=== PATIENT | male | born 1950 | race Hispanic/Latino ===

== ENCOUNTER 2018-10-21 11:07 | Inpatient (IN) | payer BC ==
[2018-10-21] MEDS ORDERED: Nitroglycerin 0.4 MG TAB (25 Tab Bottle) SL PRN (20:00)
[2018-10-21] MEDS ORDERED: HumaLOG 300 UNITS/3 ML VIAL SC PRN (20:01)
[2018-10-21] MEDS ORDERED: Dextrose 50% Abboject 50 ML SYRINGE SLOW IVP PRN (20:01)
[2018-10-21] MEDS ORDERED: Dextrose 5% in Water 1,000 ML IV PRN (20:01)
[2018-10-21] MEDS ORDERED: Acetaminophen 650 MG Suppository PR PRN (20:02)
[2018-10-21] MEDS ORDERED: Ondansetron ODT 4 MG TAB PO PRN (20:02)
[2018-10-21] MEDS ORDERED: Ondansetron PF 4 MG/2 ML Vial IVP PRN (20:02)
[2018-10-21] MEDS ORDERED: Acetaminophen 325 MG TAB PO PRN (20:02)
[2018-10-21] MEDS: Atorvastatin Calcium 10 MG TAB PO SCH (20:33)
[2018-10-21 22:07] LABS: #Eosinphils 0.3 thou/uL (0.0-0.7); #Lymphocytes 2.9 thou/uL (1.20-3.40); #Monocytes 0.8 thou/uL (0.11-0.59); #Neutrophils 5.3 thou/uL (1.40-6.50); %Basophils 0.5 % (0.0-1.0); %Eosinophils 2.8 % (0.0-10.0); %Lymphocytes 30.9 % (21.0-51.0); %Monocytes 8.6 % (0.0-10.0); %Neutrophils 57.2 % (42.0-75.0); Hemoglobin 13.4 g/dL (14.0-18.0); Mean Corpuscular HGB CONC 34.2 g/dL (32.0-36.0); Mean Corpuscular Hemoglobin 30.9 pg (27.0-31.0); Mean Corpuscular Volume 90.3 fL (78.0-98.0); Mean Platelet Volume 7.8 fL (7.4-10.4); Platelet Count 171 thou/uL (130-400); RBC Distribution Width 12.1 % (11.5-14.5); Red Blood Cell (RBC) Count 4.33 mill/uL (4.70-6.10); White Blood Cell (WBC) Count 9.2 thou/uL (4.8-10.8)
[2018-10-21 22:28] LABS: ALT (SGPT) 11 U/L (8-55); AST (SGOT) 16 U/L (5-34); Albumin 3.5 g/dL (3.4-4.8); Alkaline Phosphatase 123 U/L (40-150); Anion Gap 13 mmol/L (10-20); BUN (Urea Nitrogen) 19 mg/dL (8.4-25.7); Bilirubin, Total 0.4 mg/dL (0.2-1.2); Calc. Creatinine Clearance 73 mL/min (70-130); Calcium 8.8 mg/dL (7.8-10.44); Carbon Dioxide 22 mmol/L (23-31); Chloride 105 mmol/L (98-107); Estimated GFR-MDRD 88; Globulin 3.2 g/dL (2.4-3.5); Glucose 213 mg/dL (80-115); Potassium 3.9 mmol/L (3.5-5.1); Protein, Total 6.7 g/dL (5.8-8.1); Sodium 136 mmol/L (136-145)
[2018-10-22 04:45] LABS: #Basophils 0.1 thou/uL (0.0-0.2); #Eosinphils 0.3 thou/uL (0.0-0.7); #Lymphocytes 2.6 thou/uL (1.20-3.40); #Monocytes 0.8 thou/uL (0.11-0.59); #Neutrophils 5.9 thou/uL (1.40-6.50); %Basophils 0.8 % (0.0-1.0); %Eosinophils 3.1 % (0.0-10.0); %Lymphocytes 27.1 % (21.0-51.0); %Monocytes 8.6 % (0.0-10.0); %Neutrophils 60.4 % (42.0-75.0); Hemoglobin 13.8 g/dL (14.0-18.0); Mean Corpuscular HGB CONC 33.8 g/dL (32.0-36.0); Mean Corpuscular Hemoglobin 30.5 pg (27.0-31.0); Mean Corpuscular Volume 90.2 fL (78.0-98.0); Mean Platelet Volume 8.1 fL (7.4-10.4); Platelet Count 181 thou/uL (130-400); RBC Distribution Width 12.2 % (11.5-14.5); Red Blood Cell (RBC) Count 4.53 mill/uL (4.70-6.10); White Blood Cell (WBC) Count 9.7 thou/uL (4.8-10.8)
[2018-10-22 05:04] LABS: Anion Gap 14 mmol/L (10-20); BUN (Urea Nitrogen) 16 mg/dL (8.4-25.7); Calc. Creatinine Clearance 79 mL/min (70-130); Calcium 9.1 mg/dL (7.8-10.44); Carbon Dioxide 21 mmol/L (23-31); Chloride 103 mmol/L (98-107); Estimated GFR-MDRD Greater than 90; Glucose 179 mg/dL (80-115); Sodium 134 mmol/L (136-145)
[2018-10-22] MEDS ORDERED: Loperamide HCl 2 MG CAP PO PRN (07:34)
[2018-10-22] MEDS ORDERED: Zolpidem Tartrate 5 MG TAB PO PRN (07:34)
[2018-10-22] MEDS ORDERED: Bisacodyl 5 MG TAB PO PRN (07:34)
[2018-10-22] MEDS ORDERED: Sodium Chloride 0.65% Nasal 44 ML BOT EA NARE PRN (07:34)
[2018-10-22] MEDS ORDERED: Cepastat Lozenges 1 LOZ PO PRN (07:34)
[2018-10-22] MEDS ORDERED: Senokot S 8.6-50 MG TAB PO PRN (07:34)
[2018-10-22] MEDS ORDERED: Diabetic Tussin 200 MG/10 ML UDCUP PO PRN (07:34)
[2018-10-22] MEDS ORDERED: Loratadine 10 MG TAB PO PRN (07:34)
[2018-10-22] MEDS ORDERED: hydrALAZINE 20 MG/ML VIAL SLOW IVP PRN (07:34)
[2018-10-22] MEDS ORDERED: Nitroglycerin 0.4 MG TAB (25 Tab Bottle) SL PRN (07:36)
[2018-10-22] MEDS: Carvedilol 6.25 MG TAB PO SCH ×2 (08:37→17:40)
[2018-10-22] MEDS ORDERED: Prevnar 13-Val Conj/PF 0.5 ML SYRINGE IM ONE (09:00)
[2018-10-22] MEDS ORDERED: Enoxaparin Sodium 40 MG/0.4 ML SYRINGE SC SCH (09:00)
[2018-10-22] MEDS ORDERED: Aspirin 325 mg Enteric Coated Tablet PO SCH (09:00)
[2018-10-22] MEDS: Communication Order-Pharmacy FS SCH (10:45)
--- NOTE | 2018-10-22 11:33 | HP ---
PRIMARY CARE DOCTOR: None reported. CODE STATUS: Full code. TIME OF EVALUATION: 07:55 p.m. CHIEF COMPLAINT: Chest pain. HISTORY OF PRESENT ILLNESS: This is a 68-year-old male patient, past medical history of coronary artery disease with previous stents a few years ago. The patient came to the hospital after having chest pain that started on Friday around 1:00 a.m. The pain was very severe, is 9/10, with no clear triggers, no alleviating factors. The pain gets better by itself, although today it was very severe, got better only after injection of morphine. REVIEW OF SYSTEMS: CONSTITUTIONAL: No fever, chills, or generalized weakness. RESPIRATORY: No cough, sputum production, or shortness of breath. CARDIOVASCULAR: The patient has chest pain. No palpitation. GASTROINTESTINAL: No nausea. No vomiting, diarrhea, or abdominal pain. [employer]: No dizziness, headache, or feeling lightheaded. GENITOURINARY: No burning on urination. EXTREMITIES: No leg swelling. All other systems were reviewed and negative except for the findings mentioned above. PAST MEDICAL HISTORY: Positive for coronary artery disease, diabetes, hypertension. PAST SURGICAL HISTORY: Previous stents x2. SOCIAL HISTORY: No alcohol. No drugs. No tobacco abuse. FAMILY HISTORY: Reviewed and noncontributory for current presentation. MEDICATIONS: Reported medications have been reconciled, although no specific drug dosage was reported. KNOWN ALLERGIES: Hydrocodone and penicillin. PHYSICAL EXAMINATION: VITAL SIGNS: Temperature 96.1, heart rate 77, respiratory rate was 16, oxygen saturation was 97% on room air, blood pressure 145/77. GENERAL APPEARANCE: The patient is alert, oriented, not in acute distress. HEENT: Eyes, normal conjunctivae. Moist oral mucosa. Anicteric. No JVD. RESPIRATORY: Bilateral air entry. No rales. No wheezing. Symmetric expansion. CARDIOVASCULAR: Normal rate, regular rhythm. No murmurs. No gallop. No edema. ABDOMEN: Soft. Normal bowel sounds. MUSCULOSKELETAL: Baseline range of motion and strength. SKIN: Warm, intact. No pallor. No rash. No redness. Peripheral pulses are present. Capillary refill seems to be intact. NEURO: No evidence of any new focal weakness. Cranial nerves seem to be intact. PSYCH: The patient is in good mood. No anxiety. Optimal judgment. LABORATORY DATA: EKG and labs are pending. Telemonitoring within normal limits as reviewed by myself. ASSESSMENT AND PLAN: The patient will be placed in the hospital with following medical problems. 1. Coronary artery disease. The patient has acute angina, was unstable, was seen in the Med, admitted to the Med and then sent here to have the patient go for coronary artery bypass graft. Dr. Roy seems to be involved in the arrangement. We will follow recommendations. Though as of now seems to be stable, continue to monitor on tele. We have to reconcile home medications. 2. Diabetes. We will place the patient on sliding scale. 3. Hypertension. This seems to be controlled. Reconcile home medications. Adjust treatment as needed. 4. Hyperlipidemia. Low-cholesterol diet is advised, better control of diabetes is advised, reconcile home medications. Continue statins. 5. Deep venous thrombosis prophylaxis. Job ID: [id number]
--- NOTE | 2018-10-22 11:56 | PDOC.PN ---
- Subjective Encounter Start Date: 10/22/18 Encounter Start Time: 09:15 Patient seen and examined. No new complaints. No overnight events - Objective Resuscitation Status - Order Detail: 10/21/18 20:02 Resuscitation Status Routine Resuscitation Status: FULL: Full Resuscitation MAR Reviewed: Yes Vital Signs & Weight: Vital Signs (12 hours) Temp Pulse Resp BP Pulse Ox 10/22/18 08:31 97.9 F 71 13 127/75 96 10/22/18 04:00 97.8 F 78 15 135/79 98 Weight Weight 139 lb I&O: 10/21/18 10/22/18 10/23/18 06:59 06:59 06:59 Intake Total 720 Balance 720 Result Diagrams: 10/22/18 03:55 10/22/18 03:55 Additional Labs: Accuchecks 10/22/18 10/22/18 10/21/18 10:38 05:36 20:28 POC Glucose 288 H 173 H 128 H EKG Reviewed by me: Yes Phys Exam - Physical Examination Constitutional: NAD HEENT: PERRLA, moist MMs, sclera anicteric Neck: no JVD, supple Respiratory: no wheezing, no rales, no rhonchi Cardiovascular: RRR, no significant murmur, no rub Gastrointestinal: soft, non-tender, no distention, positive bowel sounds Musculoskeletal: no edema, pulses present Neurological: non-focal, normal sensation, moves all 4 limbs Lymphatic: no nodes Psychiatric: normal affect, A&O x 3 Skin: no rash, normal turgor Dx/Plan (1) CAD (coronary artery disease) Code(s): I25.10 - ATHSCL HEART DISEASE OF [place] CORONARY ARTERY W/O ANG PCTRS Status: Chronic (2) Diabetes type 2, controlled Code(s): E11.9 - TYPE 2 DIABETES MELLITUS WITHOUT COMPLICATIONS Status: Chronic (3) Dyslipidemia Code(s): E78.5 - HYPERLIPIDEMIA, UNSPECIFIED Status: Chronic (4) Hypertension Code(s): I10 - ESSENTIAL (PRIMARY) HYPERTENSION Status: Chronic - Plan cont current plan of care * medication reviewed as below * symptomatic treatment * home medication reviewed * tomorrow plan for CABG. Review of Systems - Review of Systems ENT: negative: Ear Pain, Ear Discharge, Nose Pain, Nose Discharge, Nose Congestion, Mouth Pain, Mouth Swelling, Throat Pain, Throat Swelling, Other Respiratory: negative: Cough, Dry, Shortness of Breath, Hemoptysis, SOB with Excertion, Pleuritic Pain, Sputum, Wheezing Cardiovascular: negative: chest pain, palpitations, orthopnea, paroxysmal nocturnal dyspnea, edema, light headedness, other Gastrointestinal: negative: Nausea, Vomiting, Abdominal Pain, Diarrhea, Constipation, Melena, Hematochezia, Other Genitourinary: negative: Dysuria, Frequency, Incontinence, Hematuria, Retention , Other Musculoskeletal: negative: Neck Pain, Shoulder Pain, Arm Pain, Back Pain, Hand Pain, Leg Pain, Foot Pain, Other - Medications/Allergies Allergies/Adverse Reactions: Allergies Allergy/AdvReac Type Severity Reaction Status Date / Time hydrocodone Allergy Hives Verified 10/21/18 19:14 Penicillins Allergy Verified 10/21/18 19:14 Medications: Current Medications Acetaminophen (Tylenol) 650 mg PO Q4H PRN PRN Reason: Headache/Fever/Mild Pain (1-3) Stop: 10/23/18 08:55 Last Admin: 10/22/18 05:35 Dose: 650 mg Acetaminophen (Tylenol) 650 mg TN Q4H PRN PRN Reason: Headache/Fever/Mild Pain (1-3) Stop: 10/23/18 08:55 Atorvastatin Calcium (Lipitor) 10 mg PO [facility] Stop: 10/23/18 08:55 Last Admin: 10/21/18 20:33 Dose: 10 mg Bisacodyl (Dulcolax) 10 mg PO DAILYPRN PRN PRN Reason: Constipation Stop: 10/23/18 08:55 Carvedilol (Coreg) 6.25 mg PO BID-[facility] Last Admin: 10/22/18 08:37 Dose: 6.25 mg Dextrose/Water (Dextrose 50%) 25 gm SLOW IVP PRN PRN PRN Reason: Hypoglycemia Stop: 10/23/18 08:55 Glucagon (Glucagon) 1 mg IM PRN PRN PRN Reason: Hypoglycemia Stop: 10/23/18 08:55 Guaifenesin (Robitussin Sf) 200 mg PO Q4H PRN PRN Reason: Cough Stop: 10/23/18 08:55 Hydralazine HCl (Apresoline) 10 mg SLOW IVP Q4H PRN PRN Reason: SBP > 180 and HR < 70 Stop: 10/23/18 08:55 Dextrose/Water (D5w) 1,000 mls @ 0 mls/hr IV .Q0M PRN PRN Reason: Hypoglycemia Stop: 10/23/18 08:55 Insulin Human Lispro (Humalog) 0 units SC .MILD SLIDING SCALE PRN PRN Reason: Mild Correctional Scale Stop: 10/23/18 08:55 Loperamide HCl (Imodium) 2 mg PO PRN PRN PRN Reason: Diarrhea/Loose Stools Stop: 10/23/18 08:55 Loratadine (Claritin) 10 mg PO DAILYPRN PRN PRN Reason: Sinus Symptoms Stop: 10/23/18 08:55 Miscellaneous Information (Communication Order-Pharmacy) 1 each FS NOW AMANDA Stop: 10/23/18 08:55 Last Admin: 10/22/18 10:45 Dose: 1 each Nitroglycerin (Nitrostat) 0.4 mg SL Q5MIN PRN PRN Reason: Chest Pain Stop: 10/23/18 08:55 Nitroglycerin (Nitrostat) 0.4 mg SL Q5MIN PRN PRN Reason: Chest Pain Stop: 10/23/18 08:55 Ondansetron HCl (Zofran Odt) 4 mg PO Q6H PRN PRN Reason: Nausea/Vomiting Stop: 10/23/18 08:55 Ondansetron HCl (Zofran) 4 mg IVP Q6H PRN PRN Reason: Nausea/Vomiting Stop: 10/23/18 08:55 Senna/Docusate Sodium (Senokot S) 2 tab PO BID PRN PRN Reason: Constipation Stop: 10/23/18 08:55 Sodium Chloride ([place] Nasal [place] 0.65%) 0 ml EA NARE QIDPRN PRN PRN Reason: Nasal Congestion Stop: 10/23/18 08:55 Throat Lozenges (Cepastat Lozenges) 1 can PO Q2H PRN PRN Reason: Sore Throat Stop: 10/23/18 08:55 Zolpidem Tartrate (Ambien) 5 mg PO HSPRN PRN PRN Reason: Insomnia Stop: 10/23/18 08:55
--- NOTE | 2018-10-22 20:04 | EKG ---
Test Reason : Blood Pressure : / mmHG Vent. Rate : 079 BPM Atrial Rate : 079 BPM P-R Int : 140 ms QRS Dur : 084 ms QT Int : 366 ms P-R-T Axes : 073 017 050 degrees QTc Int : 419 ms Normal sinus rhythm Normal ECG When compared with ECG of 16-SEP-2014 18:38, No significant change was found Confirmed by DANIELA QUINTERO, DR. Reyes ([id number]) on 10/22/2018 8:03:36 PM Referred By: Confirmed By:DR. Eric SUAREZ MD
[2018-10-22] MEDS: Atorvastatin Calcium 10 MG TAB PO SCH (20:10)
[2018-10-22] MEDS ORDERED: CEFAZOLIN 2 GM in Premix Bag 1 BAG IVPB SCH (21:15)
[2018-10-23] MEDS: Carvedilol 6.25 MG TAB PO SCH (05:35)
[2018-10-23] MEDS: Communication Order-Pharmacy FS SCH (05:35)
[2018-10-23] MEDS ORDERED: Levofloxacin 500 mg/D5W 100 ml Premix Bag ONE (06:18)
[2018-10-23] MEDS ORDERED: Clindamycin/D5W 900 mg/50 ml Premix Bag ONE (06:18)
[2018-10-23] MEDS ORDERED: Albumin 5% 500 ML ONE (06:37)
[2018-10-23] MEDS ORDERED: Heparin 10,000 UNITS/1 ML VIAL 30,000 UNITS in Sodium Chloride 0.9% 1,000 ML IVPB SCH (06:45)
[2018-10-23] MEDS ORDERED: Midazolam HCl 2 mg/2 ml Vial ONE (07:07)
[2018-10-23] MEDS ORDERED: Insulin Regular 300 UNITS/3 ML VIAL ONE (08:10)
--- NOTE | 2018-10-23 11:07 | PDOC.PN ---
- Subjective Encounter Start Date: 10/23/18 Encounter Start Time: 07:00 pt seen at 7 AM before surgery, Patient seen and examined. No new complaints. No overnight events - Objective Resuscitation Status - Order Detail: 10/21/18 20:02 Resuscitation Status Routine Resuscitation Status: FULL: Full Resuscitation MAR Reviewed: Yes Vital Signs & Weight: Vital Signs (12 hours) Temp Pulse Resp BP Pulse Ox 10/23/18 04:00 98.3 F 80 20 143/81 H 97 Weight Weight 138 lb 8 oz I&O: 10/22/18 10/23/18 10/24/18 06:59 06:59 06:59 Intake Total 720 360 Balance 720 360 Result Diagrams: 10/23/18 12:40 10/23/18 12:40 Additional Labs: Accuchecks 10/23/18 10/23/18 10/23/18 10:43 10:32 10:02 POC Glucose 154 H 127 H 112 H 10/23/18 10/23/18 10/22/18 09:49 05:16 20:24 POC Glucose 127 H 181 H 213 H 10/22/18 16:50 POC Glucose 158 H EKG Reviewed by me: Yes (nsr) Phys Exam - Physical Examination Constitutional: NAD HEENT: PERRLA, moist MMs, sclera anicteric Neck: no JVD, supple Respiratory: no wheezing, no rales, no rhonchi Cardiovascular: RRR, no significant murmur, no rub Gastrointestinal: soft, non-tender, no distention, positive bowel sounds Musculoskeletal: no edema, pulses present Neurological: non-focal, normal sensation, moves all 4 limbs Lymphatic: no nodes Psychiatric: normal affect, A&O x 3 Skin: no rash, normal turgor Dx/Plan (1) CAD (coronary artery disease) Code(s): I25.10 - ATHSCL HEART DISEASE OF [place] CORONARY ARTERY W/O ANG PCTRS Status: Chronic (2) Diabetes type 2, controlled Code(s): E11.9 - TYPE 2 DIABETES MELLITUS WITHOUT COMPLICATIONS Status: Chronic (3) Dyslipidemia Code(s): E78.5 - HYPERLIPIDEMIA, UNSPECIFIED Status: Chronic (4) Hypertension Code(s): I10 - ESSENTIAL (PRIMARY) HYPERTENSION Status: Chronic - Plan cont current plan of care, plan discussed w/ family * today CABG * after cabg, continue post cabg protocol treatment as per CV surgery * medication reviewed as below * symptomatic treatment * discussed with family bedside Review of Systems - Review of Systems ENT: negative: Ear Pain, Ear Discharge, Nose Pain, Nose Discharge, Nose Congestion, Mouth Pain, Mouth Swelling, Throat Pain, Throat Swelling, Other Respiratory: negative: Cough, Dry, Shortness of Breath, Hemoptysis, SOB with Excertion, Pleuritic Pain, Sputum, Wheezing Cardiovascular: negative: chest pain, palpitations, orthopnea, paroxysmal nocturnal dyspnea, edema, light headedness, other Gastrointestinal: negative: Nausea, Vomiting, Abdominal Pain, Diarrhea, Constipation, Melena, Hematochezia, Other Genitourinary: negative: Dysuria, Frequency, Incontinence, Hematuria, Retention , Other Musculoskeletal: negative: Neck Pain, Shoulder Pain, Arm Pain, Back Pain, Hand Pain, Leg Pain, Foot Pain, Other Skin: negative: Rash, Lesions, Markel, Bruising, Other - Medications/Allergies Allergies/Adverse Reactions: Allergies Allergy/AdvReac Type Severity Reaction Status Date / Time hydrocodone Allergy Hives Verified 10/21/18 19:14 Penicillins Allergy Verified 10/21/18 19:14 Medications: Current Medications Carvedilol (Coreg) 6.25 mg PO BID-[facility] Last Admin: 10/23/18 05:35 Dose: 6.25 mg Cefazolin Sodium/Dextrose 2 gm (/ Device) 50 mls @ 100 mls/hr IVPB ONCALL-OR AMANDA Stop: 10/23/18 21:16 Heparin Sodium (Porcine) 30, (000 units/ Sodium Chloride) 1,003 mls @ 0 mls/hr IVPB .Q0M AMANDA
[2018-10-23] MEDS ORDERED: Norepinephrine 8 MG/0.9% NS 250 ML IVPB PRN (12:13)
[2018-10-23] MEDS ORDERED: Bisacodyl 10 MG SUPP PR PRN (12:13)
[2018-10-23] MEDS ORDERED: Post-Op Insulin Drip Protocol IVPB SCH (12:13)
[2018-10-23] MEDS ORDERED: Fentanyl 100 MCG/2 ML VIAL SLOW IVP PRN ×2 (12:13)
[2018-10-23] MEDS ORDERED: Bisacodyl 5 MG TAB PO PRN (12:13)
[2018-10-23] MEDS ORDERED: Mag-Al 1200 mg/1200 mg/30 ML UDCUP PO PRN (12:13)
[2018-10-23] MEDS ORDERED: Guaifenesin DM 100-10/5 ML UDCUP PO PRN (12:13)
[2018-10-23] MEDS ORDERED: Acetaminophen 325 MG TAB PO PRN (12:13)
[2018-10-23] MEDS ORDERED: niCARdipine HCl 25 MG in Sodium Chloride 0.9% 250 ML 240 ML IVPB PRN (12:13)
[2018-10-23] MEDS ORDERED: Hetastarch 6% 500 ML 500 ML IVPB PRN (12:13)
[2018-10-23] MEDS ORDERED: Potassium Chloride 20 MEQ/100 ML PREMIX BAG IVPB PRN (12:13)
[2018-10-23] MEDS ORDERED: Nitroglycerin 50 MG/250 ML BOT 250 ML IVPB PRN (12:13)
[2018-10-23] MEDS ORDERED: Promethazine HCl 25 MG/ML VIAL IM PRN (12:13)
[2018-10-23] MEDS ORDERED: Ondansetron PF 4 MG/2 ML Vial IVP PRN (12:13)
[2018-10-23] MEDS ORDERED: DOPamine 400 MG/D5W 250 ML 250 ML IVPB PRN (12:13)
[2018-10-23] MEDS ORDERED: hydrALAZINE 20 MG/ML VIAL SLOW IVP PRN (12:13)
[2018-10-23] MEDS ORDERED: Magnesium 2 GM/50 ML 2 GM in Premix Bag 1 BAG IVPB SCH (12:15)
--- NOTE | 2018-10-23 12:50 | RAD ---
EXAM: CHEST ONE VIEW HISTORY: Post open heart surgery COMPARISON: 06/12 FINDINGS: There has been interval postsurgical changes related to CABG. An endotracheal tube is noted in place with the tip overlying the T4-5 level and above the level of the [place]. A right subclavian central venous catheter is noted in place which courses across the midline with tip overlying the region of t he left subclavian vessels. Mediastinal drains and left-sided thoracostomy tube are noted in place. No pneumothorax is seen. There is a linear density seen in the left midlung zone which may be related to an area of scarring o r atelectasis. Lungs are otherwise clear. Vascular calcifications are seen in the thoracic aorta. Mild degenerative changes are noted in the spine. IMPRESSION: 1. Postsurgical changes related to recent CABG with lines and tubes in place as described above. The left subclavian central venous catheter does cross the midline with tip overlying the region of the left subclavian vessels. 2. Linear and slight nodular density left midlung zone which may represent area of scarring or atelec tasis. However, follow-up evaluation is recommended.
[2018-10-23] MEDS: Morphine 2 MG/ML SYRINGE SLOW IVP PRN ×2 (12:56→21:25)
[2018-10-23] MEDS: Clindamycin/D5W 900 MG in Premix Bag 1 BAG IVPB SCH ×2 (12:56→18:22)
[2018-10-23 13:01] LABS: INR-International Normal Ratio 1.4; PTT 36.3 SEC (22.9-36.1); Prothrombin Time 17.1 SEC (12.0-14.7)
[2018-10-23 13:16] LABS: #Eosinphils 0.1 thou/uL (0.0-0.7); #Lymphocytes 1.4 thou/uL (1.20-3.40); #Monocytes 0.9 thou/uL (0.11-0.59); #Neutrophils 8.8 thou/uL (1.40-6.50); %Basophils 0.1 % (0.0-1.0); %Eosinophils 0.7 % (0.0-10.0); %Lymphocytes 12.7 % (21.0-51.0); %Monocytes 7.9 % (0.0-10.0); %Neutrophils 78.7 % (42.0-75.0); Hemoglobin 10.8 g/dL (14.0-18.0); Mean Corpuscular HGB CONC 34.1 g/dL (32.0-36.0); Mean Corpuscular Hemoglobin 30.9 pg (27.0-31.0); Mean Corpuscular Volume 90.7 fL (78.0-98.0); Mean Platelet Volume 8.8 fL (7.4-10.4); Platelet Count 110 thou/uL (130-400); Platelet Morphology Comment Appears Decreased; RBC Distribution Width 12.1 % (11.5-14.5); Red Blood Cell (RBC) Count 3.49 mill/uL (4.70-6.10); White Blood Cell (WBC) Count 11.2 thou/uL (4.8-10.8)
[2018-10-23 13:19] LABS: Anion Gap 11 mmol/L (10-20); BUN (Urea Nitrogen) 15 mg/dL (8.4-25.7); Calc. Creatinine Clearance 83 mL/min (70-130); Calcium 8.3 mg/dL (7.8-10.44); Carbon Dioxide 22 mmol/L (23-31); Chloride 111 mmol/L (98-107); Estimated GFR-MDRD Greater than 90; Glucose 102 mg/dL (80-115); Potassium 4.7 mmol/L (3.5-5.1); Sodium 139 mmol/L (136-145)
[2018-10-23] MEDS: Insulin Regular 100 UNITS in Sodium Chloride 0.9% 100 ML IVPB SCH (15:36)
[2018-10-23] MEDS ORDERED: HEXTEND 6% LR 500ML 500 ML IVPB PRN (16:04)
[2018-10-23 16:47] LABS: Actual Bicarbonate (HCO3a) 20.4 mEq/L (22-28); Base Excess (BEa) -2.8 mEq/L (-2.0 to +3.0); Calcium, Ionized 1.12 mmol/L (1.12-1.30); Carboxyhemoglobin (COHb) 0.2 gm% (0.0-3.0); Hemoglobin (Hb) 10.3 g/dL (14.0-18.0); O2 Tension (PaO2) 126.5 mmHg (> 80.0); pH, Arterial 7.45 (7.35-7.45)
[2018-10-23] MEDS: Ketorolac Tromethamine 30 MG/ML VIAL IVP SCH (17:18)
[2018-10-23] MEDS ORDERED: Norepinephrine 8 MG in Dextrose 5% in Water 242 ML IVPB PRN (17:24)
[2018-10-23] MEDS ORDERED: Sodium Chloride 0.9% 1,000 ML IV SCH (18:15)
[2018-10-23 18:39] LABS: Potassium 4.7 mmol/L (3.5-5.1)
[2018-10-23] MEDS: Famotidine/PF 20 mg/2ml Vial SLOW IVP SCH (21:26)
--- NOTE | 2018-10-23 22:35 | CON ---
DATE OF CONSULTATION: 10/23/2018 INDICATION FOR CONSULTATION: A 68-year-old gentleman with severe three-vessel coronary artery disease, underwent bypass surgery today. We were asked to see him in consultation to assist with any type of postoperative and perioperative arrhythmias or other cardiac problems. This very pleasant 68-year-old gentleman who is now intubated and sedated is on the ventilator, underwent bypass surgery earlier today by Dr. Roy. He had 4-vessel bypass with a SPARKS to the left anterior descending artery, saphenous vein graft to the diagonal branch and also the ramus and a radial graft to the obtuse marginal branch of the left circumflex. Apparently, the distal circumflex and the right coronary system were too small to undergo further intervention. He had undergone previously stent placement to a ramus branch and also to the right coronary artery many years ago. He presented recently to [facility] where he underwent repeat cardiac catheterization, was found to have some severe 3-vessel coronary artery disease. No further stents were placed. He was advised to undergo bypass surgery. At this time, he is stable in intensive care unit in sinus rhythm. Vital signs appear to be stable. He was transferred here for bypass surgery from [facility]. PAST MEDICAL HISTORY: Significant for hypertension, hypercholesterolemia, diabetes, coronary artery disease, and angioplasty and stent placement in the past. REVIEW OF SYSTEMS: Not obtainable. MEDICATIONS: Prior to admission included; 1. Coreg 12.5 mg b.i.d. 2. He was placed on Lovenox for subcu when he was in the [facility] prior to being transferred. 3. Guaifenesin. 4. Morphine. 5. Tylenol. 6. Aspirin 81 mg daily. 7. Atorvastatin 40 mg q.p.m. 8. He was on calcium carbonate for dyspepsia. 9. He was on famotidine 20 mg IV q.12 hours. 10. Insulin on sliding scale. 11. He was on magnesium for constipation. 12. Ondansetron for nausea. ALLERGIES: HE IS ALLERGIC TO PENICILLIN, HYDROCODONE. PHYSICAL EXAMINATION: GENERAL: Reveals a well-developed, well-nourished gentleman who is in no acute distress. VITAL SIGNS: Blood pressure is 103/65, heart rate is 84 and regular, on the ventilator, O2 saturation 98%. He is overbreathing on the ventilator about 26 breaths per minute. HEENT: Shows the head to be normocephalic and atraumatic. Carotid pulses are present without any bruits. CHEST: Clear to auscultation anteriorly. His chest tubes in place. CARDIOVASCULAR: Reveals a regular rate and rhythm. He has a midline incision which has a surgical dressing in place. ABDOMEN: Soft. I did not hear any bowel sounds at this time. EXTREMITIES: No clubbing, cyanosis, or edema. Pedal pulses are difficult to palpate. Popliteal pulses are present. NEUROLOGICAL: The patient still remains sedated but he is arousable. Otherwise neurologically I could not see any significant abnormalities. SKIN: Warm and dry. LABORATORY DATA: Shows a sodium of 139, chloride is 111, BUN 16, creatinine 0.77, blood sugar is 181, hemoglobin is 10.8 with hematocrit of 31.6, white blood cell count 11.2, platelet count was a 110. Chest x-ray is unremarkable except for postoperative changes. He did have actually a slight nodular density in the left mid lung zone which could be an area of scarring and followup was advised. IMPRESSION: 1. Coronary artery disease, status post bypass surgery today for severe 3-vessel coronary artery disease. This will be followed by the CT surgeons. He is stable at this time. 2. History of diabetes. This will be dealt with by the primary care service. 3. Hypertension, under good control at this time. 4. Hypercholesterolemia. We will resume his medications when taking p.o. We will be more than happy to continue to follow the patient with you throughout his hospital course. Job ID: [id number] [facility] MED[facility] CENTERJacey
[2018-10-24] MEDS: Ketorolac Tromethamine 30 MG/ML VIAL IVP SCH ×4 (00:15→17:10)
[2018-10-24] MEDS: Clindamycin/D5W 900 MG in Premix Bag 1 BAG IVPB SCH ×2 (00:18→07:00)
[2018-10-24] MEDS: Morphine 2 MG/ML SYRINGE SLOW IVP PRN (02:54)
[2018-10-24 04:32] LABS: #Lymphocytes 0.9 thou/uL (1.20-3.40); #Monocytes 0.9 thou/uL (0.11-0.59); #Neutrophils 6.9 thou/uL (1.40-6.50); %Basophils 0.2 % (0.0-1.0); %Eosinophils 0.1 % (0.0-10.0); %Lymphocytes 10.6 % (21.0-51.0); %Monocytes 9.9 % (0.0-10.0); %Neutrophils 79.2 % (42.0-75.0); Hemoglobin 8.7 g/dL (14.0-18.0); Mean Corpuscular HGB CONC 34.4 g/dL (32.0-36.0); Mean Corpuscular Hemoglobin 31.4 pg (27.0-31.0); Mean Corpuscular Volume 91.2 fL (78.0-98.0); Mean Platelet Volume 7.8 fL (7.4-10.4); Platelet Count 102 thou/uL (130-400); RBC Distribution Width 12.1 % (11.5-14.5); Red Blood Cell (RBC) Count 2.77 mill/uL (4.70-6.10); White Blood Cell (WBC) Count 8.7 thou/uL (4.8-10.8)
[2018-10-24 04:51] LABS: Anion Gap 14 mmol/L (10-20); BUN (Urea Nitrogen) 20 mg/dL (8.4-25.7); Calc. Creatinine Clearance 69 mL/min (70-130); Calcium 7.9 mg/dL (7.8-10.44); Carbon Dioxide 21 mmol/L (23-31); Chloride 109 mmol/L (98-107); Estimated GFR-MDRD 82; Glucose 114 mg/dL (80-115); Potassium 3.6 mmol/L (3.5-5.1); Sodium 140 mmol/L (136-145)
[2018-10-24 06:48] VITALS: BMI 23.3
[2018-10-24] MEDS: traMADol HCl 50 MG TAB PO PRN ×3 (07:48→19:14)
--- NOTE | 2018-10-24 08:00 | RAD ---
XR Chest 1 View Portable History: [Open-heart surgery] Comparison: Radiograph prior day Findings: Interval extubation. The sternal drains are similar. Subclavian central venous catheter tip projects of the left subclavian vein. Mild pulmonary venous congestion. Impression: Interval expiration without complication.
[2018-10-24] MEDS: Famotidine/PF 20 mg/2ml Vial SLOW IVP SCH ×2 (08:22→21:45)
[2018-10-24] MEDS ORDERED: Aspirin 325 MG TAB PO SCH (09:00)
--- NOTE | 2018-10-24 09:21 | EKG ---
Test Reason : S/P CABG Blood Pressure : / mmHG Vent. Rate : 078 BPM Atrial Rate : 078 BPM P-R Int : 148 ms QRS Dur : 084 ms QT Int : 402 ms P-R-T Axes : 078 052 074 degrees QTc Int : 458 ms Normal sinus rhythm Normal ECG When compared with ECG of 21-OCT-2018 22:39, No significant change was found Confirmed by DANIELA QUINTERO, SSebas ([id number]) on 10/24/2018 9:21:16 AM Referred By: VERNELL Confirmed By:DR. Eric SUAREZ MD
--- NOTE | 2018-10-24 11:14 | PDOC.PN ---
- Subjective Encounter Start Date: 10/24/18 Encounter Start Time: 10:45 Patient seen and examined. No new complaints. No overnight events - Objective Resuscitation Status - Order Detail: 10/21/18 20:02 Resuscitation Status Routine Resuscitation Status: FULL: Full Resuscitation MAR Reviewed: Yes Vital Signs & Weight: Vital Signs (12 hours) Temp Pulse Ox 10/24/18 10:57 98.8 F 10/24/18 10:00 98.8 F 10/24/18 07:34 99 10/24/18 07:00 99.0 F Weight Weight 140 lb 1.6 oz Most Recent Monitor Data Heart Rate from ECG 79 NIBP 87/58 NIBP BP-Mean 67 Respiration from ECG 15 SpO2 97 I&O: 10/23/18 10/24/18 10/25/18 06:59 06:59 06:59 Intake Total 360 2659.0 1106.5 Output Total 2245 200 Balance 360 414.0 906.5 Result Diagrams: 10/24/18 04:00 10/24/18 04:00 Additional Labs: Accuchecks 10/24/18 10/24/18 10/24/18 10:01 09:04 08:02 POC Glucose 160 H 166 H 158 H 10/24/18 10/24/18 10/24/18 07:03 05:20 04:08 POC Glucose 124 H 110 115 H 10/24/18 10/24/18 10/24/18 03:19 02:37 01:20 POC Glucose 114 H 119 H 117 H 10/24/18 10/23/18 10/23/18 00:10 23:09 22:14 POC Glucose 123 H 114 H 105 10/23/18 10/23/18 10/23/18 21:25 20:20 19:24 POC Glucose 130 H 101 149 H 10/23/18 10/23/18 10/23/18 18:01 17:22 16:11 POC Glucose 139 H 152 H 160 H 10/23/18 10/23/18 10/23/18 15:05 12:38 12:15 POC Glucose 181 H 99 110 10/23/18 10/23/18 11:31 08:03 POC Glucose 135 H 221 H Radiology Reviewed by me: Yes (chest xray reviwed) EKG Reviewed by me: Yes (nsr) Phys Exam - Physical Examination Constitutional: NAD HEENT: PERRLA, moist MMs, sclera anicteric Neck: no JVD, supple Respiratory: no wheezing, no rales, no rhonchi chest tube in place Cardiovascular: RRR, no significant murmur, no rub surgical site with dressing Gastrointestinal: soft, non-tender, no distention, positive bowel sounds pineda+ Musculoskeletal: no edema, pulses present Neurological: non-focal, normal sensation Lymphatic: no nodes Psychiatric: normal affect, A&O x 3 Skin: no rash, normal turgor Dx/Plan (1) S/P CABG (coronary artery bypass graft) Code(s): Z95.1 - PRESENCE OF AORTOCORONARY BYPASS GRAFT Status: Acute (2) CAD (coronary artery disease) Code(s): I25.10 - ATHSCL HEART DISEASE OF [place] CORONARY ARTERY W/O ANG PCTRS Status: Chronic (3) Diabetes type 2, controlled Code(s): E11.9 - TYPE 2 DIABETES MELLITUS WITHOUT COMPLICATIONS Status: Chronic (4) Dyslipidemia Code(s): E78.5 - HYPERLIPIDEMIA, UNSPECIFIED Status: Chronic (5) Hypertension Code(s): I10 - ESSENTIAL (PRIMARY) HYPERTENSION Status: Chronic - Plan cont current plan of care * currently on post CABG protocol treatment * stable medically * discussed with grand son bedside * medication reviewed as below * symptomatic treatment. Review of Systems - Review of Systems ENT: negative: Ear Pain, Ear Discharge, Nose Pain, Nose Discharge, Nose Congestion, Mouth Pain, Mouth Swelling, Throat Pain, Throat Swelling, Other Respiratory: negative: Cough, Dry, Shortness of Breath, Hemoptysis, SOB with Excertion, Pleuritic Pain, Sputum, Wheezing Cardiovascular: negative: chest pain, palpitations, orthopnea, paroxysmal nocturnal dyspnea, edema, light headedness, other Gastrointestinal: negative: Nausea, Vomiting, Abdominal Pain, Diarrhea, Constipation, Melena, Hematochezia, Other Genitourinary: negative: Dysuria, Frequency, Incontinence, Hematuria, Retention , Other Musculoskeletal: negative: Neck Pain, Shoulder Pain, Arm Pain, Back Pain, Hand Pain, Leg Pain, Foot Pain, Other - Medications/Allergies Allergies/Adverse Reactions: Allergies Allergy/AdvReac Type Severity Reaction Status Date / Time hydrocodone Allergy Hives Verified 10/21/18 19:14 Penicillins Allergy Verified 10/21/18 19:14 Medications: Current Medications Acetaminophen (Tylenol) 650 mg PO Q6H PRN PRN Reason: Headache/Fever Or Mild Pain Al Hydroxide/Mg Hydroxide (Maalox) 30 ml PO Q4H PRN PRN Reason: Indigestion Albumin Human (Albumin 5%) 12.5 gm IVPB Q6H PRN PRN Reason: To Maintain SBP> 90 mmHG Stop: 10/24/18 12:14 Albumin Human (Albumin 5%) 25 gm IVPB Q6H PRN PRN Reason: To Maintain SBP > 90 mmHG Stop: 10/24/18 12:14 Last Admin: 10/24/18 10:17 Dose: 25 gm Albuterol/Ipratropium (Duoneb) 3 ml NEB A2AA-NH PRN PRN Reason: SHORTNESS OF BREATH Aspirin (Aspirin) [address] [facility] Last Admin: 10/24/18 08:22 Dose: 325 mg Bisacodyl (Dulcolax) 10 mg PO Q12H PRN PRN Reason: Constipation Bisacodyl (Dulcolax) 10 mg LA Q12H PRN PRN Reason: Constipation Famotidine (Pepcid) [address] Q12[address] [facility] Last Admin: 10/24/18 08:22 Dose: 20 mg Fentanyl (Sublimaze) 25 mcg SLOW IVP Q2H PRN PRN Reason: Moderate Pain (4-6) Stop: 10/25/18 12:10 Fentanyl (Sublimaze) 50 mcg SLOW IVP Q2H PRN PRN Reason: Severe Pain (7-10) Stop: 10/25/18 12:10 Last Admin: 10/23/18 17:03 Dose: 50 mcg Guaifenesin/Dextromethorphan (Robitussin Dm) 15 ml PO Q4H PRN PRN Reason: Cough Hydralazine HCl (Apresoline) 10 mg SLOW IVP Q6H PRN PRN Reason: To Maintain SBP< 140mmHG Dopamine HCl/Dextrose (Dopamine 400 Mg/D5w 250 Ml) 250 mls @ 0 mls/hr IVPB PRN PRN; Protocol PRN Reason: To maintain SBP > 90 mmHG Nicardipine HCl 25 mg/ Sodium (Chloride) 250 mls @ 0 mls/hr IVPB INF PRN; Protocol PRN Reason: To Maintain SBP< 140mmHG Nitroglycerin/Dextrose (Nitroglycerin 50 Mg/250 Ml Bot) 250 mls @ 0 mls/hr IVPB PRN PRN; Protocol PRN Reason: To Maintain SBP< 140mmHG Insulin Human Regular 100 (units/ Sodium Chloride) 101 mls @ 0 mls/hr IVPB INF AMANDA Last Admin: 10/23/18 15:36 Dose: 101 mls Hetastarch/Lactated Electrolytes (Hextend 6%-Lactacted Ringers) 500 mls @ 0 mls /hr IVPB PRN PRN PRN Reason: To Maintain SBP > 90mmHg Stop: 10/24/18 16:00 Last Admin: 10/23/18 16:07 Dose: 500 mls Norepinephrine Bitartrate 8 mg (/ Dextrose/Water) 250 mls @ 0 mls/hr IVPB PRN PRN; Protocol PRN Reason: to maintain SBP > 90 mmHG Last Admin: 10/23/18 18:39 Dose: 250 mls Ketorolac Tromethamine (Toradol) 15 mg IVP Q6HR AMANDA Stop: 10/26/18 18:01 Last Admin: 10/24/18 06:25 Dose: 15 mg Miscellaneous Medication (Post-Op Insulin Drip Protocol) 1 each IVPB ASDIR AMANDA Miscellaneous Medication (Post-Op Sliding Scale) 1 each FS ASDIR AMANDA Morphine Sulfate (Morphine) 2 mg SLOW IVP Q15MIN PRN PRN Reason: Severe Pain (7-10) Last Admin: 10/24/18 02:54 Dose: 2 mg Ondansetron HCl (Zofran) 4 mg IVP Q6H PRN PRN Reason: Nausea/Vomiting Potassium Chloride (Kcl) 20 meq IVPB PRN PRN PRN Reason: K level </= 4.0 Last Admin: 10/24/18 07:32 Dose: 20 meq Promethazine HCl (Phenergan) 6.25 mg IM Q4H PRN PRN Reason: Nausea/Vomiting Sodium Chloride (Flush - Normal Saline) 10 ml IVF Q12HR AMANDA Last Admin: 10/24/18 08:22 Dose: 10 ml Sodium Chloride (Flush - Normal Saline) 10 ml IVF PRN PRN PRN Reason: Saline Flush Tramadol HCl (Ultram) 50 mg PO Q6H PRN PRN Reason: Pain Last Admin: 10/24/18 07:48 Dose: 50 mg
[2018-10-24] MEDS: Insulin Regular 100 UNITS in Sodium Chloride 0.9% 100 ML IVPB SCH ×2 (12:15→15:54)
[2018-10-24] MEDS ORDERED: Insulin Glargine 12 UNITS in Pre-Filled Syringe 1 EACH SC SCH (12:30)
[2018-10-24] MEDS: Insulin Regular 300 UNITS/3 ML VIAL SC PRN (21:55)
[2018-10-25] MEDS: Ketorolac Tromethamine 30 MG/ML VIAL IVP SCH ×2 (00:12→05:11)
[2018-10-25] MEDS: traMADol HCl 50 MG TAB PO PRN ×3 (02:39→17:47)
[2018-10-25] MEDS: Insulin Regular 300 UNITS/3 ML VIAL SC PRN ×3 (05:11→18:14)
[2018-10-25 05:34] LABS: #Lymphocytes 1.9 thou/uL (1.20-3.40); #Monocytes 1.4 thou/uL (0.11-0.59); #Neutrophils 8.8 thou/uL (1.40-6.50); %Basophils 0.2 % (0.0-1.0); %Eosinophils 0.2 % (0.0-10.0); %Lymphocytes 15.7 % (21.0-51.0); %Monocytes 11.4 % (0.0-10.0); %Neutrophils 72.5 % (42.0-75.0); Hemoglobin 8.2 g/dL (14.0-18.0); Mean Corpuscular HGB CONC 33.5 g/dL (32.0-36.0); Mean Corpuscular Volume 92.6 fL (78.0-98.0); Platelet Count 112 thou/uL (130-400); RBC Distribution Width 12.3 % (11.5-14.5); Red Blood Cell (RBC) Count 2.65 mill/uL (4.70-6.10); White Blood Cell (WBC) Count 12.1 thou/uL (4.8-10.8)
[2018-10-25 05:45] LABS: Anion Gap 11 mmol/L (10-20); BUN (Urea Nitrogen) 33 mg/dL (8.4-25.7); Calc. Creatinine Clearance 55 mL/min (70-130); Calcium 8.2 mg/dL (7.8-10.44); Carbon Dioxide 22 mmol/L (23-31); Chloride 107 mmol/L (98-107); Estimated GFR-MDRD 62; Glucose 183 mg/dL (80-115); Potassium 4.2 mmol/L (3.5-5.1); Sodium 136 mmol/L (136-145)
--- NOTE | 2018-10-25 08:09 | RAD ---
XR Chest 1 View Portable History: [Open heart surgery] Comparison: Radiograph prior day Findings: Relatively with central venous catheter is similar. Mediastinal drains are similar. Small l eft effusion. Small right effusion. No pneumothorax. Impression: Unchanged exam of the chest.
[2018-10-25] MEDS ORDERED: Fentanyl 100 MCG/2 ML VIAL SLOW IVP PRN (08:51)
[2018-10-25] MEDS ORDERED: Guaifenesin DM 100-10/5 ML UDCUP PO PRN (08:51)
[2018-10-25] MEDS ORDERED: Nitroglycerin 0.4 MG TAB (25 Tab Bottle) SL PRN (08:51)
[2018-10-25] MEDS ORDERED: Mag-Al 1200 mg/1200 mg/30 ML UDCUP PO PRN (08:51)
[2018-10-25] MEDS ORDERED: Bisacodyl 5 MG TAB PO PRN (08:51)
[2018-10-25] MEDS ORDERED: Bisacodyl 10 MG SUPP PR PRN (08:51)
[2018-10-25] MEDS ORDERED: Mineral Oil ENEMA PR PRN (08:51)
[2018-10-25] MEDS ORDERED: Ondansetron PF 4 MG/2 ML Vial IVP PRN (08:51)
[2018-10-25] MEDS ORDERED: Dextrose 5% in Water 1,000 ML IV PRN (09:00)
[2018-10-25] MEDS ORDERED: Dextrose 50% Abboject 50 ML SYRINGE SLOW IVP PRN (09:00)
[2018-10-25] MEDS: Aspirin 325 mg Enteric Coated Tablet PO SCH (09:34)
[2018-10-25] MEDS: Famotidine 20 MG TAB PO SCH ×2 (09:35→20:46)
[2018-10-25] MEDS ORDERED: Glimepiride 4 MG TAB PO SCH (10:00)
--- NOTE | 2018-10-25 10:24 | PDOC.PN ---
- Subjective Encounter Start Date: 10/25/18 Encounter Start Time: 07:00 Patient seen and examined. No new complaints. No overnight events pt has mild surgical site pain, family bedside, his chest tube has been removed - Objective Resuscitation Status - Order Detail: 10/21/18 20:02 Resuscitation Status Routine Resuscitation Status: FULL: Full Resuscitation MAR Reviewed: Yes Vital Signs & Weight: Vital Signs (12 hours) Temp Pulse Ox 10/25/18 07:39 99 10/25/18 04:00 98.2 F 10/25/18 00:00 98.5 F 99 Weight Weight 144 lb 6.444 oz Most Recent Monitor Data Heart Rate from ECG 82 NIBP 134/64 NIBP BP-Mean 87 Respiration from ECG 29 SpO2 99 I&O: 10/24/18 10/25/18 10/26/18 06:59 06:59 06:59 Intake Total 2659.0 2118.5 50 Output Total 2245 838 100 Balance 414.0 1280.5 -50 Result Diagrams: 10/25/18 05:05 10/25/18 05:05 Additional Labs: Accuchecks 10/25/18 10/24/18 10/24/18 05:06 21:10 15:53 POC Glucose 189 H 194 H 149 H 10/24/18 10/24/18 12:10 11:09 POC Glucose 152 H 99 Radiology Reviewed by me: Yes (chest xray stable) EKG Reviewed by me: Yes (nsr) Phys Exam - Physical Examination Constitutional: NAD HEENT: PERRLA, moist MMs, sclera anicteric Neck: no JVD, supple Respiratory: no wheezing, no rales, no rhonchi Cardiovascular: RRR, no significant murmur, no rub Gastrointestinal: soft, non-tender, no distention, positive bowel sounds Musculoskeletal: no edema, pulses present pineda+ Neurological: non-focal Lymphatic: no nodes Psychiatric: normal affect, A&O x 3 Skin: no rash, normal turgor Dx/Plan (1) S/P CABG (coronary artery bypass graft) Code(s): Z95.1 - PRESENCE OF AORTOCORONARY BYPASS GRAFT Status: Acute (2) CAD (coronary artery disease) Code(s): I25.10 - ATHSCL HEART DISEASE OF [place] CORONARY ARTERY W/O ANG PCTRS Status: Chronic (3) Diabetes type 2, controlled Code(s): E11.9 - TYPE 2 DIABETES MELLITUS WITHOUT COMPLICATIONS Status: Chronic (4) Dyslipidemia Code(s): E78.5 - HYPERLIPIDEMIA, UNSPECIFIED Status: Chronic (5) Hypertension Code(s): I10 - ESSENTIAL (PRIMARY) HYPERTENSION Status: Chronic - Plan cont current plan of care, plan discussed w/ family * today plan for transfer to [facility] * cardiac rehab * medication reviewed as below * symptomatic treatment * stable for now * updated to family bedside. Review of Systems - Review of Systems ENT: negative: Ear Pain, Ear Discharge, Nose Pain, Nose Discharge, Nose Congestion, Mouth Pain, Mouth Swelling, Throat Pain, Throat Swelling, Other Respiratory: negative: Cough, Dry, Shortness of Breath, Hemoptysis, SOB with Excertion, Pleuritic Pain, Sputum, Wheezing Cardiovascular: negative: chest pain, palpitations, orthopnea, paroxysmal nocturnal dyspnea, edema, light headedness, other Gastrointestinal: negative: Nausea, Vomiting, Abdominal Pain, Diarrhea, Constipation, Melena, Hematochezia, Other Genitourinary: negative: Dysuria, Frequency, Incontinence, Hematuria, Retention , Other Musculoskeletal: negative: Neck Pain, Shoulder Pain, Arm Pain, Back Pain, Hand Pain, Leg Pain, Foot Pain, Other - Medications/Allergies Allergies/Adverse Reactions: Allergies Allergy/AdvReac Type Severity Reaction Status Date / Time hydrocodone Allergy Hives Verified 10/21/18 19:14 Penicillins Allergy Verified 10/21/18 19:14 Medications: Current Medications Acetaminophen (Tylenol) 650 mg PO Q6H PRN PRN Reason: Headache/Fever or Pain Al Hydroxide/Mg Hydroxide (Maalox) 30 ml PO Q4H PRN PRN Reason: Indigestion Aspirin (Ecotrin) 325 mg PO DAILY [facility] Last Admin: 10/25/18 09:34 Dose: 325 mg Bisacodyl (Dulcolax) 10 mg PO Q12H PRN PRN Reason: Constipation Bisacodyl (Dulcolax) 10 mg LA Q12H PRN PRN Reason: Constipation Dextrose/Water (Dextrose 50%) 25 gm SLOW IVP PRN PRN PRN Reason: PER HYPOGLYCEMIC PROTOCOL Famotidine (Pepcid) 20 mg PO BID [facility] Last Admin: 10/25/18 09:35 Dose: 20 mg Fentanyl (Sublimaze) 25 mcg SLOW IVP Q2H PRN PRN Reason: Moderate breakthrough pain Stop: 10/27/18 08:52 Glimepiride (Amaryl) 4 mg PO QAM-WM AMANDA Glimepiride (Amaryl) 4 mg PO 1000 AMANDA Stop: 10/25/18 12:00 Last Admin: 10/25/18 09:35 Dose: 4 mg Glucagon (Glucagon) 1 mg SC PRN PRN PRN Reason: PER HYPOGLYCEMIC PROTOCOL Guaifenesin/Dextromethorphan (Robitussin Dm) 15 ml PO Q4H PRN PRN Reason: Cough Dextrose/Water (D5w) 1,000 mls @ 0 mls/hr IV INF PRN PRN Reason: PRN HYPOGLYCEMIC PROTOCOL Insulin Human Regular (Humulin R) 0 units SC Q4H PRN; Protocol PRN Reason: POST OP SLIDING SCALE Mineral Oil (Fleet Mineral Oil) 133 ml LA DAILYPRN PRN PRN Reason: Constipation Nitroglycerin (Nitrostat) 0.4 mg SL Q5MIN PRN PRN Reason: Chest Pain Ondansetron HCl (Zofran) 4 mg IVP Q6H PRN PRN Reason: Nausea/Vomiting Pravastatin Sodium (Pravachol) 40 mg PO HS AMANDA Tramadol HCl (Ultram) 50 mg PO Q6H PRN PRN Reason: Pain Last Admin: 10/25/18 02:39 Dose: 50 mg
--- NOTE | 2018-10-25 13:14 | PDOC.CTH ---
Cardiology Progress Note - Subjective Pt.seen and eval.by me.Doing wellpostop.Sitting up in chair. No new events. - Objective Vital Signs Temp Pulse Ox 10/25/18 11:00 98.8 F 10/25/18 07:39 99 10/25/18 04:00 98.2 F Weight 144 lb 6.444 oz 10/24/18 10/25/18 10/26/18 06:59 06:59 06:59 Intake Total 2659.0 2118.5 700 Output Total 2245 838 215 Balance 414.0 1280.5 485 - Physical Examination General/Neuro: alert & oriented x3 Neck: no JVD present Lungs: CTA Heart: RRR Abdomen: NT/ND, soft - Labs Result Diagrams: 10/25/18 05:05 10/25/18 05:05 - Assessment/Plan 1.S/P CAD for severe CAD.Doing well. 2.HTN: stable on present meds. 3. DM: continue present meds. 4.Dyslipdemia: resume po statins.
[2018-10-25] MEDS: Pravastatin Sodium 40 MG TAB PO SCH (20:46)
[2018-10-25] MEDS: Acetaminophen 325 MG TAB PO PRN (20:46)
[2018-10-26] MEDS: traMADol HCl 50 MG TAB PO PRN ×2 (00:22→19:47)
[2018-10-26 05:44] LABS: #Eosinphils 0.1 thou/uL (0.0-0.7); #Lymphocytes 1.8 thou/uL (1.20-3.40); #Monocytes 1.4 thou/uL (0.11-0.59); #Neutrophils 9.5 thou/uL (1.40-6.50); %Basophils 0.3 % (0.0-1.0); %Eosinophils 0.7 % (0.0-10.0); %Lymphocytes 14.1 % (21.0-51.0); %Monocytes 10.7 % (0.0-10.0); %Neutrophils 74.2 % (42.0-75.0); Hemoglobin 8.8 g/dL (14.0-18.0); Mean Corpuscular HGB CONC 34.2 g/dL (32.0-36.0); Mean Corpuscular Hemoglobin 31.3 pg (27.0-31.0); Mean Corpuscular Volume 91.5 fL (78.0-98.0); Mean Platelet Volume 8.2 fL (7.4-10.4); Platelet Count 134 thou/uL (130-400); Red Blood Cell (RBC) Count 2.82 mill/uL (4.70-6.10); White Blood Cell (WBC) Count 12.7 thou/uL (4.8-10.8)
[2018-10-26 06:02] LABS: Anion Gap 14 mmol/L (10-20); BUN (Urea Nitrogen) 28 mg/dL (8.4-25.7); Calc. Creatinine Clearance 67 mL/min (70-130); Calcium 8.8 mg/dL (7.8-10.44); Carbon Dioxide 21 mmol/L (23-31); Chloride 106 mmol/L (98-107); Estimated GFR-MDRD 75; Glucose 191 mg/dL (80-115); Potassium 5.1 mmol/L (3.5-5.1); Sodium 136 mmol/L (136-145)
[2018-10-26] MEDS: Aspirin 325 mg Enteric Coated Tablet PO SCH (08:13)
[2018-10-26] MEDS: Furosemide 40 MG TAB PO SCH (08:13)
[2018-10-26] MEDS: Carvedilol 3.125 MG TAB PO SCH ×2 (08:13→16:48)
[2018-10-26] MEDS: Glimepiride 4 MG TAB PO SCH (08:13)
[2018-10-26] MEDS: metFORMIN 500 MG TAB PO SCH ×2 (08:13→16:48)
[2018-10-26] MEDS: Famotidine 20 MG TAB PO SCH ×2 (08:14→19:50)
--- NOTE | 2018-10-26 09:16 | OP ---
DATE OF PROCEDURE: 10/23/2018 PREOPERATIVE DIAGNOSIS: Coronary artery disease. PROCEDURE PERFORMED: Coronary artery bypass graft x4, left internal mammary artery good flow to a 1.5 mm left anterior descending, saphenous vein good quality to a 1.5 mm diagonal and 1.5 mm to 2 mm ramus, and a radial artery to a 1.5 to 2 mm OM. The distal circ and the right coronary system were felt to be too small to graft when examined. DESCRIPTION OF PROCEDURE: After adequate anesthesia had been obtained, I performed a harvest of the left radial artery while Dr. Wolfe did an endovascular vein harvest of the left greater saphenous vein. Ultimately having about 2 scissor lengths worth of vein for using. Following closure of the left arm, I performed a median sternotomy, harvesting the left internal mammary artery, which was passed behind a small remnant of thymus gland through a hole in the pericardium. It was treated with intraluminal papaverine while the aorta and right atrium were cannulated. Cardiopulmonary bypass was started. Vessels were inspected for grafting. The aorta was crossclamped and a liter of cold blood cardioplegia given through the aortic root. Following this, the 4 distal anastomoses were completed, following which the cross-clamp was removed and the partial occluding clamp placed. 2 venous anastomoses were performed on the aortic root and marked with rings. To the ramus vein graft sahni, the radial artery was placed. Following this, the proximal and distal anastomoses were examined and were hemostatic. The patient was then weaned from cardiopulmonary bypass. Cannula was removed and protamine given systemically while the aortic cannulation site was secured with an additional 4-0 Prolene suture. The sternum was then reapproximated over a mediastinal left pleural drain using #7 interrupted wire with vancomycin paste on the sternal edges, platelet rich blood, and platelet poor plasma. Subcutaneous tissue and skin were closed in layers. Job ID: [id number]
--- NOTE | 2018-10-26 11:56 | PDOC.PN ---
- Subjective Encounter Start Date: 10/26/18 Encounter Start Time: 07:00 Patient seen and examined. No new complaints. No overnight events - Objective Resuscitation Status - Order Detail: 10/21/18 20:02 Resuscitation Status Routine Resuscitation Status: FULL: Full Resuscitation MAR Reviewed: Yes Vital Signs & Weight: Vital Signs (12 hours) Temp Pulse Resp BP Pulse Ox 10/26/18 08:00 97.5 F L 87 17 172/82 H 92 L 10/26/18 04:00 98.6 F 87 19 138/65 94 L 10/26/18 02:29 94 L Weight Weight 146 lb 8 oz Most Recent Monitor Data Heart Rate from ECG 90 NIBP 119/63 NIBP BP-Mean 81 Respiration from ECG 19 SpO2 99 I&O: 10/25/18 10/26/18 10/27/18 06:59 06:59 06:59 Intake Total 2118.5 885 Output Total 838 365 Balance 1280.5 520 Result Diagrams: 10/26/18 05:19 10/26/18 05:19 Additional Labs: Accuchecks 10/26/18 10/26/18 10/25/18 10:26 05:36 20:53 POC Glucose 229 H 178 H 148 H 10/25/18 10/25/18 16:50 11:40 POC Glucose 221 H 280 H EKG Reviewed by me: Yes (nsr) Phys Exam - Physical Examination Constitutional: NAD HEENT: PERRLA, moist MMs, sclera anicteric Neck: no JVD, supple Respiratory: no wheezing, no rales, no rhonchi Cardiovascular: RRR, no significant murmur, no rub surgical site with dressing Gastrointestinal: soft, non-tender, no distention, positive bowel sounds Musculoskeletal: no edema, pulses present Neurological: non-focal, normal sensation, moves all 4 limbs Lymphatic: no nodes Psychiatric: normal affect, A&O x 3 Skin: no rash, normal turgor Dx/Plan (1) S/P CABG (coronary artery bypass graft) Code(s): Z95.1 - PRESENCE OF AORTOCORONARY BYPASS GRAFT Status: Acute (2) CAD (coronary artery disease) Code(s): I25.10 - ATHSCL HEART DISEASE OF [place] CORONARY ARTERY W/O ANG PCTRS Status: Chronic (3) Diabetes type 2, controlled Code(s): E11.9 - TYPE 2 DIABETES MELLITUS WITHOUT COMPLICATIONS Status: Chronic (4) Dyslipidemia Code(s): E78.5 - HYPERLIPIDEMIA, UNSPECIFIED Status: Chronic (5) Hypertension Code(s): I10 - ESSENTIAL (PRIMARY) HYPERTENSION Status: Chronic - Plan cont current plan of care, plan discussed w/ family * continue cardiac rehab * discussed with family bedside * medication reviewed as below * symptomatic treatment * discharge per CV surgery Review of Systems - Review of Systems ENT: negative: Ear Pain, Ear Discharge, Nose Pain, Nose Discharge, Nose Congestion, Mouth Pain, Mouth Swelling, Throat Pain, Throat Swelling, Other Respiratory: negative: Cough, Dry, Shortness of Breath, Hemoptysis, SOB with Excertion, Pleuritic Pain, Sputum, Wheezing Cardiovascular: negative: chest pain, palpitations, orthopnea, paroxysmal nocturnal dyspnea, edema, light headedness, other Gastrointestinal: negative: Nausea, Vomiting, Abdominal Pain, Diarrhea, Constipation, Melena, Hematochezia, Other Genitourinary: negative: Dysuria, Frequency, Incontinence, Hematuria, Retention , Other Musculoskeletal: negative: Neck Pain, Shoulder Pain, Arm Pain, Back Pain, Hand Pain, Leg Pain, Foot Pain, Other - Medications/Allergies Allergies/Adverse Reactions: Allergies Allergy/AdvReac Type Severity Reaction Status Date / Time hydrocodone Allergy Hives Verified 10/21/18 19:14 Penicillins Allergy Verified 10/21/18 19:14 Medications: Current Medications Acetaminophen (Tylenol) 650 mg PO Q6H PRN PRN Reason: Headache/Fever or Pain Last Admin: 10/25/18 20:46 Dose: 650 mg Al Hydroxide/Mg Hydroxide (Maalox) 30 ml PO Q4H PRN PRN Reason: Indigestion Aspirin (Ecotrin) 325 mg PO DAILY [facility] Last Admin: 10/26/18 08:13 Dose: 325 mg Bisacodyl (Dulcolax) 10 mg PO Q12H PRN PRN Reason: Constipation Bisacodyl (Dulcolax) 10 mg [place] Q12H PRN PRN Reason: Constipation Carvedilol (Coreg) 3.125 mg PO BID-[facility] Last Admin: 10/26/18 08:13 Dose: 3.125 mg Dextrose/Water (Dextrose 50%) 25 gm SLOW IVP PRN PRN PRN Reason: PER HYPOGLYCEMIC PROTOCOL Famotidine (Pepcid) 20 mg PO BID [facility] Last Admin: 10/26/18 08:14 Dose: 20 mg Fentanyl (Sublimaze) 25 mcg SLOW IVP Q2H PRN PRN Reason: Moderate breakthrough pain Stop: 10/27/18 08:52 Furosemide (Lasix) 40 mg PO DAILY-[facility] Last Admin: 10/26/18 08:13 Dose: 40 mg Glimepiride (Amaryl) 4 mg PO QAM-[facility] Last Admin: 10/26/18 08:13 Dose: 4 mg Glucagon (Glucagon) 1 mg SC PRN PRN PRN Reason: PER HYPOGLYCEMIC PROTOCOL Guaifenesin/Dextromethorphan (Robitussin Dm) 15 ml PO Q4H PRN PRN Reason: Cough Dextrose/Water (D5w) 1,000 mls @ 0 mls/hr IV INF PRN PRN Reason: PRN HYPOGLYCEMIC PROTOCOL Insulin Human Regular (Humulin R) 0 units SC Q4H PRN; Protocol PRN Reason: POST OP SLIDING SCALE Last Admin: 10/25/18 18:14 Dose: 6 unit Metformin HCl (Glucophage) 500 mg PO BID-[facility] Last Admin: 10/26/18 08:13 Dose: 500 mg Mineral Oil (Fleet Mineral Oil) 133 ml [place] DAILYPRN PRN PRN Reason: Constipation Nitroglycerin (Nitrostat) 0.4 mg SL Q5MIN PRN PRN Reason: Chest Pain Ondansetron HCl (Zofran) 4 mg IVP Q6H PRN PRN Reason: Nausea/Vomiting Pravastatin Sodium (Pravachol) 40 mg PO HS [facility] Last Admin: 10/25/18 20:46 Dose: 40 mg Sodium Chloride (Flush - Normal Saline) 10 ml IVF Q12HR [facility] Last Admin: 10/26/18 08:14 Dose: 10 ml Sodium Chloride (Flush - Normal Saline) 10 ml IVF PRN PRN PRN Reason: Saline Flush Tramadol HCl (Ultram) 50 mg PO Q6H PRN PRN Reason: Pain Last Admin: 10/26/18 00:22 Dose: 50 mg
[2018-10-26] MEDS: Insulin Regular 300 UNITS/3 ML VIAL SC PRN (12:19)
--- NOTE | 2018-10-26 13:04 | PDOC.CTH ---
Cardiology Progress Note - Subjective The pt seen and examined. No overnight events. No cardiac complaints. - Objective Vital Signs Temp Pulse Resp BP Pulse Ox 10/26/18 12:00 98.3 F 84 16 127/68 93 L 10/26/18 08:00 97.5 F L 87 17 172/82 H 92 L 10/26/18 04:00 98.6 F 87 19 138/65 94 L 10/26/18 02:29 94 L Weight 146 lb 8 oz 10/25/18 10/26/18 10/27/18 06:59 06:59 06:59 Intake Total 2118.5 885 Output Total 838 365 Balance 1280.5 520 - Physical Examination General/Neuro: alert & oriented x3 Neck: no JVD present Lungs: CTA Heart: RRR Abdomen: soft Extremities: other: (No edema) - Telemetry Telemetry Rhythm: SR - Labs Result Diagrams: 10/27/18 04:44 10/26/18 05:19 - Assessment/Plan 1.CAD with S/P CABG x4 on 10/23/2018 with SPARKS-LAD, SVG-Dig and Rramus, and Radial-OM (distal Lt Cx and RCA were felt to be too small to graft) - stable with Coreg, ASA, and statin 2.HTN: stable on present meds. 3. DM: continue present meds. 4.Dyslipdemia: On Pravastatin MAR reviewed Pt. seen and eval. by me. I agree with the A/P by the [employer]. Atrial fib. Will add amiodarone and dilt. as needed. If he does not convert then cardioversion. [email or web address] Review of Systems - Review of Systems Constitutional: reports: no symptoms reported EENTM: reports: no symptoms reported Respiratory: reports: no symptoms reported Cardiac (ROS): reports: no symptoms reported ABD/GI: reports: no symptoms reported : reports: no symptoms reported Musculoskeletal: reports: no symptoms reported
[2018-10-26] MEDS ORDERED: Diltiazem 125 MG in Sodium Chloride 0.9% 100 ML IVPB SCH (17:30)
[2018-10-26] MEDS: Pravastatin Sodium 40 MG TAB PO SCH (19:50)
[2018-10-26] MEDS ORDERED: Digoxin 0.5 MG/2 ML AMP SLOW IVP SCH (21:30)
[2018-10-26] MEDS ORDERED: Amiodarone 150 MG, Admixture Fee 1 EACH in Dextrose 5% in Water 100 ML IVPB SCH (21:45)
[2018-10-26 21:52] LABS: ALT (SGPT) 13 U/L (8-55); AST (SGOT) 26 U/L (5-34); Albumin 3.4 g/dL (3.4-4.8); Alkaline Phosphatase 74 U/L (40-150); Bilirubin, Direct 0.4 mg/dL (0.1-0.3); Bilirubin, Total 0.8 mg/dL (0.2-1.2)
[2018-10-26] MEDS: Amiodarone 450 MG, Admixture Fee 1 EACH in Dextrose 5% in Water 250 ML IVPB SCH (22:09)
[2018-10-26] MEDS ORDERED: Digoxin 0.5 MG/2 ML AMP SLOW IVP PRN (22:30)
[2018-10-27 05:23] LABS: #Basophils 0.1 thou/uL (0.0-0.2); #Eosinphils 0.2 thou/uL (0.0-0.7); #Lymphocytes 2.4 thou/uL (1.20-3.40); #Monocytes 1.2 thou/uL (0.11-0.59); #Neutrophils 7.1 thou/uL (1.40-6.50); %Basophils 0.7 % (0.0-1.0); %Eosinophils 2.2 % (0.0-10.0); %Lymphocytes 21.5 % (21.0-51.0); %Monocytes 10.5 % (0.0-10.0); %Neutrophils 65.2 % (42.0-75.0); Mean Corpuscular HGB CONC 34.1 g/dL (32.0-36.0); Mean Corpuscular Hemoglobin 31.2 pg (27.0-31.0); Mean Corpuscular Volume 91.3 fL (78.0-98.0); Platelet Count 176 thou/uL (130-400); RBC Distribution Width 12.3 % (11.5-14.5); Red Blood Cell (RBC) Count 2.88 mill/uL (4.70-6.10); White Blood Cell (WBC) Count 10.9 thou/uL (4.8-10.8)
[2018-10-27] MEDS: Amiodarone 450 MG, Admixture Fee 1 EACH in Dextrose 5% in Water 250 ML IVPB SCH ×2 (05:40→20:16)
[2018-10-27] MEDS ORDERED: metFORMIN 500 MG TAB PO SCH (06:23)
[2018-10-27] MEDS ORDERED: Digoxin 0.5 MG/2 ML AMP SLOW IVP SCH (08:00)
[2018-10-27] MEDS: Furosemide 40 MG TAB PO SCH (08:48)
[2018-10-27] MEDS: Carvedilol 3.125 MG TAB PO SCH ×3 (08:48→20:16)
[2018-10-27] MEDS: Glimepiride 4 MG TAB PO SCH (08:48)
[2018-10-27] MEDS: metFORMIN 500 MG TAB PO SCH ×2 (08:48→17:05)
[2018-10-27] MEDS: Famotidine 20 MG TAB PO SCH ×2 (08:48→20:16)
[2018-10-27] MEDS: Aspirin 325 mg Enteric Coated Tablet PO SCH (08:48)
[2018-10-27] MEDS: Enoxaparin Sodium 30 MG/0.3 ML SYRINGE SC SCH (08:49)
[2018-10-27 10:03] LABS: Analyzer IN Cardio OR; Base Excess (BEa) -2.3 mEq/L (-2.0 to +3.0); CO2 Tension 31.7 mmHg (35.0-45.0); Carboxyhemoglobin (COHb) 0.5 gm% (0.0-3.0); Hemoglobin (Hb) 12.9 g/dL (14.0-18.0); O2 Tension (PaO2) 435.7 mmHg (> 80.0); Potassium - ABG Lab 3.59 mmol/L (3.70-5.30); pH, Arterial 7.44 (7.35-7.45)
[2018-10-27 10:03] LABS: Actual Bicarbonate (HCO3a) 19.6 mEq/L (22-28); Analyzer IN Cardio OR; CO2 Tension 34.6 mmHg (35.0-45.0); Calcium, Ionized 1.06 mmol/L (1.12-1.30); Carboxyhemoglobin (COHb) 0.3 gm% (0.0-3.0); Hemoglobin (Hb) 11.9 g/dL (14.0-18.0); Potassium - ABG Lab 3.42 mmol/L (3.70-5.30); pH, Arterial 7.37 (7.35-7.45)
[2018-10-27 10:04] LABS: Actual Bicarbonate (HCO3a) 21.5 mEq/L (22-28); Analyzer IN Cardio OR; Base Excess (BEa) -1.9 mEq/L (-2.0 to +3.0); CO2 Tension 31.7 mmHg (35.0-45.0); Calcium, Ionized 0.93 mmol/L (1.12-1.30); Carboxyhemoglobin (COHb) 0.3 gm% (0.0-3.0); Hemoglobin (Hb) 9.3 g/dL (14.0-18.0); Potassium - ABG Lab 7.07 mmol/L (3.70-5.30); pH, Arterial 7.45 (7.35-7.45)
[2018-10-27 10:04] LABS: Actual Bicarbonate (HCO3a) 22.6 mEq/L (22-28); Analyzer IN Cardio OR; Base Excess (BEa) -1.6 mEq/L (-2.0 to +3.0); CO2 Tension 35.8 mmHg (35.0-45.0); Calcium, Ionized 0.97 mmol/L (1.12-1.30); Carboxyhemoglobin (COHb) 0.4 gm% (0.0-3.0); Hemoglobin (Hb) 8.2 g/dL (14.0-18.0); O2 Tension (PaO2) 348.3 mmHg (> 80.0); pH, Arterial 7.42 (7.35-7.45)
[2018-10-27 10:05] LABS: Actual Bicarbonate (HCO3v) 24 mEq/L (22-28); Analyzer IN Cardio OR; Base Excess -1.2 mEq/L (-2.0 to +3.0); Chloride (ABG LAB) 106 mmol/L (98-106); Hemoglobin (Hb) 8.5 g/dL (12.6-17.4); Potassium - ABG Lab 4.43 mmol/L (3.70-5.30); Sodium 135.9 mmol/L (133-146); pH (venous) 7.35 (7.32-7.43)
[2018-10-27 10:05] LABS: Actual Bicarbonate (HCO3a) 24.5 mEq/L (22-28); Analyzer IN Cardio OR; Base Excess (BEa) -0.7 mEq/L (-2.0 to +3.0); CO2 Tension 42.9 mmHg (35.0-45.0); Calcium, Ionized 0.99 mmol/L (1.12-1.30); Carboxyhemoglobin (COHb) 0.3 gm% (0.0-3.0); Hemoglobin (Hb) 8.7 g/dL (14.0-18.0); O2 Tension (PaO2) 379.1 mmHg (> 80.0); Potassium - ABG Lab 4.38 mmol/L (3.70-5.30); pH, Arterial 7.38 (7.35-7.45)
[2018-10-27 10:06] LABS: Actual Bicarbonate (HCO3a) 21.8 mEq/L (22-28); Analyzer IN Cardio OR; Base Excess (BEa) -2.9 mEq/L (-2.0 to +3.0); CO2 Tension 37.5 mmHg (35.0-45.0); Calcium, Ionized 1.15 mmol/L (1.12-1.30); Carboxyhemoglobin (COHb) 0.3 gm% (0.0-3.0); Hemoglobin (Hb) 10.5 g/dL (14.0-18.0); O2 Tension (PaO2) 448.3 mmHg (> 80.0); Potassium - ABG Lab 3.75 mmol/L (3.70-5.30); pH, Arterial 7.38 (7.35-7.45)
[2018-10-27 10:06] LABS: Actual Bicarbonate (HCO3a) 21.7 mEq/L (22-28); Analyzer IN Cardio OR; Base Excess (BEa) -2.5 mEq/L (-2.0 to +3.0); Calcium, Ionized 1.23 mmol/L (1.12-1.30); Carboxyhemoglobin (COHb) 0.2 gm% (0.0-3.0); Hemoglobin (Hb) 8.9 g/dL (14.0-18.0); O2 Tension (PaO2) 334.6 mmHg (> 80.0); Potassium - ABG Lab 3.72 mmol/L (3.70-5.30); pH, Arterial 7.41 (7.35-7.45)
[2018-10-27 10:08] LABS: Puncture Site ALINE
[2018-10-27 10:09] LABS: O2 Tension (PaO2) 524.1 mmHg (> 80.0); Puncture Site ALINE
[2018-10-27 10:10] LABS: O2 Tension (PaO2) 568.9 mmHg (> 80.0); Puncture Site ALINE
[2018-10-27 10:11] LABS: Puncture Site ALINE
[2018-10-27 10:12] LABS: Puncture Site ALINE
[2018-10-27 10:13] LABS: Puncture Site ALINE
[2018-10-27 10:14] LABS: Puncture Site ALINE
--- NOTE | 2018-10-27 11:03 | PDOC.PN ---
- Subjective Encounter Start Date: 10/27/18 Encounter Start Time: 07:15 pt developed afib with RVR yesterday and amiodaron drip started, still has RVR, pt is asymptomatic, no fever - Objective Resuscitation Status - Order Detail: 10/21/18 20:02 Resuscitation Status Routine Resuscitation Status: FULL: Full Resuscitation MAR Reviewed: Yes Vital Signs & Weight: Vital Signs (12 hours) Temp Pulse Pulse Pulse Resp BP BP 10/27/18 09:30 104 H 103 H 131/63 148/79 H 10/27/18 08:50 119 H 10/27/18 08:00 98.8 F 113 H 17 10/27/18 04:00 97.9 F 119 H 18 10/27/18 00:00 129 H 10/26/18 23:05 132 H BP Pulse Ox 10/27/18 09:30 10/27/18 08:50 10/27/18 08:00 124/80 96 10/27/18 04:00 134/86 94 L 10/27/18 00:00 108/76 10/26/18 23:05 Weight Weight 145 lb 6.4 oz Most Recent Monitor Data Heart Rate from ECG 90 NIBP 119/63 NIBP BP-Mean 81 Respiration from ECG 19 SpO2 99 I&O: 10/26/18 10/27/18 10/28/18 06:59 06:59 06:59 Intake Total 885 358 Output Total 365 300 Balance 520 58 Result Diagrams: 10/27/18 04:44 10/26/18 05:19 Additional Labs: Accuchecks 10/27/18 10/27/18 10/26/18 10:33 05:34 20:23 POC Glucose 263 H 167 H 220 H 10/26/18 10/26/18 16:47 10:26 POC Glucose 211 H 229 H EKG Reviewed by me: Yes (afib with RVR) Phys Exam - Physical Examination Constitutional: NAD HEENT: PERRLA, moist MMs, sclera anicteric Neck: no JVD, supple Respiratory: no wheezing, no rales, no rhonchi surgical site with dressing Cardiovascular: no significant murmur, irregular Gastrointestinal: soft, non-tender, no distention, positive bowel sounds Musculoskeletal: no edema, pulses present Neurological: non-focal, normal sensation Lymphatic: no nodes Psychiatric: normal affect, A&O x 3 Skin: no rash, normal turgor Dx/Plan (1) S/P CABG (coronary artery bypass graft) Code(s): Z95.1 - PRESENCE OF AORTOCORONARY BYPASS GRAFT Status: Acute (2) CAD (coronary artery disease) Code(s): I25.10 - ATHSCL HEART DISEASE OF [place] CORONARY ARTERY W/O ANG PCTRS Status: Chronic (3) Diabetes type 2, controlled Code(s): E11.9 - TYPE 2 DIABETES MELLITUS WITHOUT COMPLICATIONS Status: Chronic (4) Dyslipidemia Code(s): E78.5 - HYPERLIPIDEMIA, UNSPECIFIED Status: Chronic (5) Hypertension Code(s): I10 - ESSENTIAL (PRIMARY) HYPERTENSION Status: Chronic (6) Atrial fibrillation with RVR Code(s): I48.91 - UNSPECIFIED ATRIAL FIBRILLATION Status: Acute - Plan cont current plan of care, plan discussed w/ family * continue amiodaron drip as per cardiology * medication reviewed as below * symptomatic treatment * discussed with family. * continue glimeperide and metfromin as per current dose ( dose of metformin increased today by CV surgery) Review of Systems - Review of Systems ENT: negative: Ear Pain, Ear Discharge, Nose Pain, Nose Discharge, Nose Congestion, Mouth Pain, Mouth Swelling, Throat Pain, Throat Swelling, Other Respiratory: negative: Cough, Dry, Shortness of Breath, Hemoptysis, SOB with Excertion, Pleuritic Pain, Sputum, Wheezing Cardiovascular: negative: chest pain, palpitations, orthopnea, paroxysmal nocturnal dyspnea, edema, light headedness, other Gastrointestinal: negative: Nausea, Vomiting, Abdominal Pain, Diarrhea, Constipation, Melena, Hematochezia, Other Genitourinary: negative: Dysuria, Frequency, Incontinence, Hematuria, Retention , Other Musculoskeletal: negative: Neck Pain, Shoulder Pain, Arm Pain, Back Pain, Hand Pain, Leg Pain, Foot Pain, Other - Medications/Allergies Allergies/Adverse Reactions: Allergies Allergy/AdvReac Type Severity Reaction Status Date / Time hydrocodone Allergy Hives Verified 10/21/18 19:14 Penicillins Allergy Verified 10/21/18 19:14 Medications: Current Medications Acetaminophen (Tylenol) 650 mg PO Q6H PRN PRN Reason: Headache/Fever or Pain Last Admin: 10/25/18 20:46 Dose: 650 mg Al Hydroxide/Mg Hydroxide (Maalox) 30 ml PO Q4H PRN PRN Reason: Indigestion Aspirin (Ecotrin) 325 mg PO DAILY [facility] Last Admin: 10/27/18 08:48 Dose: 325 mg Bisacodyl (Dulcolax) 10 mg PO Q12H PRN PRN Reason: Constipation Bisacodyl (Dulcolax) 10 mg [place] Q12H PRN PRN Reason: Constipation [facility] ([facility]g) [facility] Last Admin: 10/27/18 08:48 Dose: 3.125 mg Dextrose/Water (Dextrose 50%) 25 gm SLOW IVP PRN PRN PRN Reason: PER HYPOGLYCEMIC PROTOCOL Digoxin (Lanoxin) 0.125 mg PO DAILY [facility] Enoxaparin Sodium (Lovenox) 30 mg SC 0900 [facility] Last Admin: 10/27/18 08:49 Dose: 30 mg Famotidine (Pepcid) 20 mg PO BID [facility] Last Admin: 10/27/18 08:48 Dose: 20 mg Furosemide (Lasix) [facility] Last Admin: 10/27/18 08:48 Dose: 40 mg Glimepiride (Amaryl) 4 mg PO QAM-[facility] Last Admin: 10/27/18 08:48 Dose: 4 mg Glucagon (Glucagon) 1 mg SC PRN PRN PRN Reason: PER HYPOGLYCEMIC PROTOCOL Guaifenesin/Dextromethorphan (Robitussin Dm) 15 ml PO Q4H PRN PRN Reason: Cough Dextrose/Water (D5w) 1,000 mls @ 0 mls/hr IV INF PRN PRN Reason: PRN HYPOGLYCEMIC PROTOCOL Amiodarone HCl 450 mg/Miscellaneous Medication 1 each/ Dextrose/Water 259 mls @ 0 mls/hr IVPB INF [facility]; Protocol Last Admin: 10/27/18 05:40 Dose: 259 mls Insulin Human Regular (Humulin R) 0 units SC Q4H PRN; Protocol PRN Reason: POST OP SLIDING SCALE Last Admin: 10/26/18 12:19 Dose: 6 unit Metformin HCl (Glucophage) 1,[facility] Last Admin: 10/27/18 08:48 Dose: 1,000 mg Mineral Oil (Fleet Mineral Oil) 133 ml [place] DAILYPRN PRN PRN Reason: Constipation Nitroglycerin (Nitrostat) 0.4 mg SL Q5MIN PRN PRN Reason: Chest Pain Ondansetron HCl (Zofran) 4 mg IVP Q6H PRN PRN Reason: Nausea/Vomiting Pravastatin Sodium (Pravachol) 40 mg PO HS [facility] Last Admin: 10/26/18 19:50 Dose: 40 mg Sodium Chloride (Flush - Normal Saline) 10 ml IVF Q12HR [facility] Last Admin: 10/27/18 08:49 Dose: 10 ml Sodium Chloride (Flush - Normal Saline) 10 ml IVF PRN PRN PRN Reason: Saline Flush Tramadol HCl (Ultram) 50 mg PO Q6H PRN PRN Reason: Pain Last Admin: 10/26/18 19:47 Dose: 50 mg
[2018-10-27] MEDS: Insulin Regular 300 UNITS/3 ML VIAL SC PRN (12:06)
--- NOTE | 2018-10-27 13:48 | PDOC.CTH ---
Cardiology Progress Note - Subjective The pt seen and examined. No overnight events. No cardiac complaints. - Objective Vital Signs Temp Pulse Pulse Pulse Resp BP BP 10/27/18 09:30 104 H 103 H 131/63 148/79 H 10/27/18 08:50 119 H 10/27/18 08:00 98.8 F 113 H 17 10/27/18 04:00 97.9 F 119 H 18 BP Pulse Ox 10/27/18 09:30 10/27/18 08:50 10/27/18 08:00 124/80 95 10/27/18 04:00 134/86 94 L Weight 145 lb 6.4 oz 10/26/18 10/27/18 10/28/18 06:59 06:59 06:59 Intake Total 885 358 Output Total 365 300 Balance 520 58 - Physical Examination General/Neuro: alert & oriented x3 Neck: no JVD present Lungs: CTA Heart: other: Abdomen: soft Extremities: other: (Noedema) - Labs Result Diagrams: 10/27/18 04:44 10/26/18 05:19 - Assessment/Plan 1.CAD with S/P CABG x4 on 10/23/2018 with SPARKS-LAD, SVG-Dig and Rramus, and Radial-OM (distal Lt Cx and RCA were felt to be too small to graft) - stable with Coreg, ASA, and statin 2. HTN: stable on present meds. 3. DM: continue present meds. 4.Dyslipdemia: On Pravastatin 5. Post-op Afib with RVR - stable with Coreg, Amiodarone drip and Diogixn; will increase Coreg 3.125mg from BID to TID. MAR reviewed pt. seen and eval. by me. I agree with the A/P by the MANAGER [employer]. He converted to sinus this afternoon. Continue amiodarone. Change to po in AM. Review of Systems - Review of Systems Constitutional: reports: no symptoms reported EENTM: reports: no symptoms reported Respiratory: reports: no symptoms reported Cardiac (ROS): reports: no symptoms reported ABD/GI: reports: no symptoms reported : reports: no symptoms reported
[2018-10-27] MEDS: Acetaminophen 325 MG TAB PO PRN (17:06)
[2018-10-27] MEDS: Pravastatin Sodium 40 MG TAB PO SCH (20:16)
[2018-10-27] MEDS: traMADol HCl 50 MG TAB PO PRN (22:47)
[2018-10-28] MEDS ORDERED: Amiodarone 200 MG TAB PO SCH ×4 (09:00→21:00)
[2018-10-28] MEDS ORDERED: Digoxin 0.125 MG TAB PO SCH (09:00)
[2018-10-28] MEDS: Aspirin 325 mg Enteric Coated Tablet PO SCH (09:06)
[2018-10-28] MEDS: metFORMIN 500 MG TAB PO SCH ×2 (09:06→16:54)
[2018-10-28] MEDS: Glimepiride 4 MG TAB PO SCH (09:06)
[2018-10-28] MEDS: Famotidine 20 MG TAB PO SCH (09:06)
[2018-10-28] MEDS: Carvedilol 3.125 MG TAB PO SCH ×2 (09:06→16:54)
[2018-10-28] MEDS: Enoxaparin Sodium 30 MG/0.3 ML SYRINGE SC SCH (09:07)
--- NOTE | 2018-10-28 12:32 | PDOC.CTH ---
Cardiology Progress Note - Subjective The pt seen and examined. No overnight events. No cardiac complaints. - Objective Vital Signs Temp Pulse Pulse Pulse Resp BP BP 10/28/18 11:20 66 69 122/58 L 124/60 10/28/18 09:06 67 10/28/18 08:51 71 67 131/77 124/66 10/28/18 08:00 10/28/18 07:35 97.6 F 67 18 10/28/18 03:50 97.6 F 68 16 BP Pulse Ox Pulse Ox Pulse Ox 10/28/18 11:20 94 L 91 L 10/28/18 09:06 10/28/18 08:51 94 L 92 L 10/28/18 08:00 96 10/28/18 07:35 132/64 96 10/28/18 03:50 100/56 L 93 L Weight 143 lb 12.8 oz 10/27/18 10/28/18 10/29/18 06:59 06:59 06:59 Intake Total 358 1207.4 Output Total 300 1000 Balance 58 207.4 - Physical Examination General/Neuro: alert & oriented x3 Neck: no JVD present Lungs: CTA Heart: RRR Abdomen: soft Extremities: other: (No edema) - Labs Result Diagrams: 10/27/18 04:44 10/26/18 05:19 - Assessment/Plan 1.CAD with S/P CABG x4 on 10/23/2018 with SPARKS-LAD, SVG-Dig and Rramus, and Radial-OM (distal Lt Cx and RCA were felt to be too small to graft) - stable with Coreg, ASA, and statin 2. HTN: stable on present meds. 3. DM: continue present meds. 4.Dyslipdemia: On Pravastatin 5. Post-op Afib with RVR - converted back to SR; On Coreg, ASA 325mg qd, Digoxin 0.125mg qd, and Amiodarone 200mg PO BID from 10/28/2018 (will change to 200mg qd within 2 wks) MAR reviewed Pt. seen and eval. by me. He remains in NSR. Chest clear. RRR. I agree with the a/p by the MARINE ENGINE MECHANIC. The BS is still on the high side. Cardiac status is stable. Review of Systems - Review of Systems Constitutional: reports: no symptoms reported EENTM: reports: no symptoms reported Respiratory: reports: no symptoms reported Cardiac (ROS): reports: no symptoms reported ABD/GI: reports: no symptoms reported : reports: no symptoms reported Musculoskeletal: reports: no symptoms reported
[2018-10-28] MEDS: Insulin Regular 300 UNITS/3 ML VIAL SC PRN (13:03)
[2018-10-28 16:15] VITALS: BP 113/64; TEMP 96.9
[2018-10-28] MEDS: Acetaminophen 325 MG TAB PO PRN (17:20)
--- NOTE | 2018-10-29 04:53 | DIS ---
DATE OF ADMISSION: 10/21/2018 DATE OF DISCHARGE: 10/28/2018 DISCHARGE DISPOSITION: Home. FOLLOW UP: 1. Follow up with Dr. Duong Villavicencio next week as scheduled. 2. Follow up with Dr. Roy in 2 weeks. 3. Follow up with Cardiology, Dr. Dexter on 25 November 2018. ALLERGIES: THE PATIENT IS ALLERGIC TO PENICILLIN AND HYDROCODONE. DISCHARGE MEDICATIONS: 1. Carvedilol 3.125 three times a day. 2. Digoxin 0.125 mg daily. 3. Amiodarone 200 mg twice daily for 2 weeks, then once daily. 4. Pravastatin 40 mg at bedtime. 5. Glimepiride 8 mg daily. 6. Farxiga 5 mg daily. 7. Linagliptin/metformin 2.5/500 twice a day. 8. Aspirin 325 mg daily. 9. Nitroglycerin as needed. 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 Cardiology, Dr. Blancas. 2. Cardiovascular Dr. Roy. BRIEF HOSPITAL COURSE: The patient is a 68-year-old male with coronary artery disease status post stent placement, diabetes mellitus type 2, and hypertension, presented to the hospital on 21 October 2018 with chest discomfort. Please refer to the history and physical for further details. The patient was initially admitted at [facility] and was transferred to this facility for coronary artery bypass grafting. He underwent coronary artery bypass grafting x4, left internal mammary artery to 1.5 mm left anterior descending, saphenous vein to 1.5 mm diagonal and ramus and radial artery to obtuse marginal. The distal circumflex and right coronary system were felt to be too small to graft when examined. He was monitored in the intensive care setting. Postoperatively, he developed atrial fibrillation with rapid ventricular response that responded to amiodarone. He is currently in sinus rhythm. Digoxin was added as well. He was extensively counseled on postoperative care. He has been cleared by Cardiology and Cardiovascular for discharge. FINAL DIAGNOSES: 1. Coronary artery disease status post coronary artery bypass graft x4 on 23 October 2018. 2. Diabetes mellitus type 2. 3. Hypertension. 4. Dyslipidemia. 5. Postoperative atrial fibrillation with rapid ventricular response, converted to sinus rhythm. 6. Chronic anemia. 7. Chronic kidney disease, stage 2. 8. Mild hyponatremia, improved. TIME SPENT: Total time coordinating the discharge of this patient was 39 minutes. Plan was extensively discussed with the patient and the family at the bedside. They stated understanding. Job ID: [id number]
== END 2018-10-28 18:45 | disposition home or self-care (01) | DRG 236 ==
LOC: 2NO 18:03 → CCU 10-23 07:12 → 2NO 10-25 13:03
PROVIDERS: ADMIT Internal Medicine; ATTEND Internal Medicine
PROC: 02100Z9 Bypass Coronary Artery, One Artery from Left Internal Mammary, Open Approach (ICD-10-PCS; principal; 2018-10-23)
PROC: 021109W Bypass Coronary Artery, Two Arteries from Aorta with Autologous Venous Tissue, Open Approach (ICD-10-PCS; 2018-10-23)
PROC: 06BQ4ZZ Excision of Left Saphenous Vein, Percutaneous Endoscopic Approach (ICD-10-PCS; 2018-10-23)
PROC: 02100AW Bypass Coronary Artery, One Artery from Aorta with Autologous Arterial Tissue, Open Approach (ICD-10-PCS; 2018-10-23)
PROC: 03BC4ZZ Excision of Left Radial Artery, Percutaneous Endoscopic Approach (ICD-10-PCS; 2018-10-23)
PROC: 5A1221Z Performance of Cardiac Output, Continuous (ICD-10-PCS; 2018-10-23)
DX: I25.10 Atherosclerotic heart disease of native coronary artery without angina pectoris (principal); I97.190 Other postprocedural cardiac functional disturbances following cardiac surgery; E11.9 Type 2 diabetes mellitus without complications; I10 Essential (primary) hypertension; E78.5 Hyperlipidemia, unspecified; I48.91 Unspecified atrial fibrillation; Z79.82 Long term (current) use of aspirin; Z79.899 Other long term (current) drug therapy; Z95.5 Presence of coronary angioplasty implant and graft; Z88.5 Allergy status to narcotic agent; Z88.0 Allergy status to penicillin
CPT/HCPCS: 36415; 36416; 36430; 71045; 80048; 80053; 80076; 82805; 83735; 84443; 85025; 85610; 85730; 86850; 86900; 86901; 90471; 90670; 93005; 93010; 93798; 94002; G0009; J0282; J1160; J1642; J1644; J1650; J1815; J1825; J1885; J1956; J2250; J2270; J2405; J3010; J3475; J3480; J3490; J7050; J7070; J7620; P9045; S0028

== ENCOUNTER 2018-11-22 03:00 | Emergency (ER) | payer BC ==
[2018-11-22 03:35] LABS: #Eosinphils 0.3 thou/uL (0.0-0.7); #Lymphocytes 1.6 thou/uL (1.20-3.40); #Monocytes 0.7 thou/uL (0.11-0.59); #Neutrophils 5.6 thou/uL (1.40-6.50); %Basophils 0.4 % (0.0-1.0); %Eosinophils 4.2 % (0.0-10.0); %Lymphocytes 19.6 % (21.0-51.0); %Monocytes 8.3 % (0.0-10.0); %Neutrophils 67.5 % (42.0-75.0); Hemoglobin 12.2 g/dL (14.0-18.0); Mean Corpuscular HGB CONC 31.7 g/dL (32.0-36.0); Mean Corpuscular Hemoglobin 30.3 pg (27.0-31.0); Mean Corpuscular Volume 95.7 fL (78.0-98.0); Mean Platelet Volume 7.6 fL (7.4-10.4); Platelet Count 195 thou/uL (130-400); RBC Distribution Width 14.2 % (11.5-14.5); Red Blood Cell (RBC) Count 4.02 mill/uL (4.70-6.10); White Blood Cell (WBC) Count 8.2 thou/uL (4.8-10.8)
[2018-11-22 04:12] LABS: ALT (SGPT) 15 U/L (8-55); AST (SGOT) 24 U/L (5-34); Albumin 4.1 g/dL (3.4-4.8); Alkaline Phosphatase 156 U/L (40-150); Anion Gap 16 mmol/L (10-20); BUN (Urea Nitrogen) 23 mg/dL (8.4-25.7); Bilirubin, Total 0.4 mg/dL (0.2-1.2); Calc. Creatinine Clearance 0 mL/min (70-130); Calcium 9.6 mg/dL (7.8-10.44); Carbon Dioxide 23 mmol/L (23-31); Chloride 105 mmol/L (98-107); Estimated GFR-MDRD 73; Potassium 4.7 mmol/L (3.5-5.1); Protein, Total 7.1 g/dL (5.8-8.1); Sodium 139 mmol/L (136-145)
[2018-11-22 04:13] LABS: Acetaminophen Less than 6.0 mcg/mL (10.0-30.0); Alcohol Less than 10 mg/dL (Less than 10); Salicylate Less than 8.0 mg/dL (15.0-30.0)
[2018-11-22 04:19] LABS: Glucose 31 mg/dL (80-115)
[2018-11-22] MEDS ORDERED: Dextrose 50% Abboject 50 ML SYRINGE ONE (04:29)
[2018-11-22 05:55] LABS: Bilirubin Negative (Negative); Blood, Urine Negative (Negative); Clarity Clear (Clear); Glucose, Urine (Dipstick) 300 mg/dL (Negative); Leukocyte Negative Leu/uL (Negative); Nitrite Negative (Negative); Protein, Urine (Dipstick) Negative (Neg-Trace); Urobilinogen Normal mg/dL (Less than 2)
[2018-11-22 06:29] LABS: Amphetamine Not Detected (NotDetected); Barbiturates Screen Not Detected (NotDetected); Benzodiazepine Screen Not Detected (NotDetected); Cocaine Metabolite Screen Not Detected (NotDetected); Medtox Control Line Valid? VALID (VALID); Medtox Reader # READER 4; Methadone Not Detected (NotDetected); Methamphetamine Not Detected (NotDetected); Opiate Screen Not Detected (NotDetected); Oxycodone Screen Not Detected (NotDetected); Phencyclidine (PCP) Not Detected (NotDetected); THC/Cannabinoid Screen Not Detected (NotDetected); Tricyclic Screen Not Detected (NotDetected)
--- NOTE | 2018-11-22 07:52 | CT ---
PRELIMINARY REPORT/[facility]/EMERGENCY AFTER HOURS PROCEDURE: EXAM: CT Head Without Contrast EXAM DATE/TIME: 11/22/2018 3:37 AM CLINICAL HISTORY: 68 years old, male; Altered mental status/memory loss; Confusion or disorientation; Patient HX: Patient woke up from sleep stating "im bad" family states patient is altered TECHNIQUE: Imaging protocol: Axial computed tomography images of the head without contrast. COMPARISON: No relevant prior studies available. FINDINGS: Brain: No evidence of acute large vessel infarction. No evidence of acute intracranial hemorrhage, Ex traaxial fluid or midline shift. Mild prominence of the cerebral sulci and ventricles. Cerebellum atrophic; otherwise, posterior fossa structures within normal limits. Ventricles: Normal. No ventriculomegaly. Bones/joints: Unremarkable. No acute fracture. Sinuses: Visualized sinuses are unremarkable. No fluid levels. Mastoid air cells: Visualized mastoid air cells are well aerated. No mastoid effusion. Soft tissues: Unremarkable. IMPRESSION: 1. No evidence of acute large vessel infarction. 2. No evidence of acute intracranial hemorrhage, extrapial fluid or midline shift. 3. Mild cerebral atrophy. Thank you for allowing us to participate in the care of your patient. Dictated and Authenticated by: Cong Lemos MD 11/22/2018 4:05 AM Central Time ([place] & [place]) FINAL REPORT by Dr. Mckeon: EMERGENCY AFTER-HOURS STUDY: CT BRAIN NONCONTRAST: DATE: 11/22/2018 HISTORY: 68 year old male with altered mental status. Memory loss and confusion or disorientation. FINDINGS: There is no evidence of acute intra-axial or extra-axial hemorrhage. There is no midline shift or any other mass effect. There is no extra-axial fluid collection. There is no evidence of obstructive hydrocephalus. Calvarium is intact. Agree with preliminary report by [facility]. IMPRESSION: No acute intracranial findings. Transcribed Date/Time: 11/22/2018 10:39 AM
--- NOTE | 2018-11-22 08:07 | CT ---
CT CHEST WITH 3D VOLUME RENDERING WITH CONTRAST: CLINICAL HISTORY: Altered mental status, difficulty breathing. FINDINGS: No evidence of significant filling defect of pulmonary arteries. There is scattered vascular disease . There is evidence of prior sternotomy and CABG. There is a mild left pleural effusion with adjace nt left parenchymal consolidation. Mild volume loss is present within each lung and linear densities may also relate to superimposed areas of parenchymal scar within the lungs. No pneumothorax visuali zed. Partially imaged mild fat stranding of the upper abdomen is nonspecific and incompletely assess ed. There are scattered osseous degenerative changes. There is a partially imaged hypodensity poste riorly within the left kidney, likely a partially visualized left renal cyst. IMPRESSION: 1. No large, central pulmonary embolus. 2. Mild left pleural effusion with adjacent consolidation that may relate to compressive atelectasis . 3. Additional details are described above. POS: EROS
--- NOTE | 2018-11-22 08:31 | RAD ---
RADIOGRAPH CHEST 1 VIEW: DATE: 11/22/2018 HISTORY: 68-year-old male with chest pain. FINDINGS: There are no airspace densities, pulmonary edema, pneumothorax, or cardiomegaly. The lateral costophr enic angles are sharp. Sternotomy wires. IMPRESSION: 1. No acute cardiopulmonary findings. 2. Status post open heart surgery.
[2018-11-22] MEDS ORDERED: ISOVUE-370 76%-LOCM 1 ML ONE (12:36)
== END 2018-11-22 06:38 | disposition home or self-care (01) ==
LOC: ERS 03:00
DX: R07.89 Other chest pain (principal); I10 Essential (primary) hypertension
CPT/HCPCS: 36416; 70450; 71045; 71275; 80053; 80306; 80307; 81003; 84484; 85025; 93005; 96374; Q9966